=== PATIENT | female | born 1965 | race Caucasian/White ===

== ENCOUNTER 2020-08-21 04:28 | Emergency (ER) | payer MEDICAID ==
[~2020-08-21] VITALS: Ht 160 cm; Wt 50.0 kg
--- NOTE | 2020-08-21 05:30 | PHYS DOC ---
Past Medical History Past Medical History: Unknown (KIRSTIN PINEDA MD) Past Surgical History: Other Additional Past Surgical Histo: UNKNOWN (KIRSTIN PINEDA MD) Smoking Status: Current Every Day Smoker Alcohol Use: Heavy (KIRSTIN PINEDA MD) Adult General Chief Complaint Chief Complaint: ALCOHOL INTOXICATION HPI HPI Patient is a 55 year old with a past medical history of alcohol and substance abuse now presents emergency department due to concern for acute alcohol intoxication. Patient was apparently found by police at a local bus stop and appeared to be acutely intoxicated. Patient is denying any complaints. Does admit to consuming alcohol (KIRSTIN PINEDA MD) Review of Systems Review of Systems Constitutional: Denies fever or chills [] Eyes: Denies change in visual acuity, redness, or eye pain [] HENT: Denies nasal congestion or sore throat [] Respiratory: Denies cough or shortness of breath [] Cardiovascular: No additional information not addressed in HPI [] GI: Denies abdominal pain, nausea, vomiting, bloody stools or diarrhea [] : Denies dysuria or hematuria [] Musculoskeletal: Denies back pain or joint pain [] Integument: Denies rash or skin lesions [] Neurologic: Denies headache, focal weakness or sensory changes [] Endocrine: Denies polyuria or polydipsia [] All other systems were reviewed and found to be within normal limits, except as documented in this note. (KIRSTIN PINEDA MD) Allergies Allergies Allergies Coded Allergies Type Severity Reaction Last Updated Verified No Known Drug Allergies 10/05/19 No (ANAYA MONTOYA DO) Physical Exam Physical Exam Constitutional: Well developed, well nourished, no acute distress, non-toxic appearance. [] HENT: Normocephalic, atraumatic, bilateral external ears normal, oropharynx moist, no oral exudates, nose normal. [] Eyes: PERRLA, EOMI, conjunctiva normal, no discharge. [] Neck: Normal range of motion, no tenderness, supple, no stridor. [] Cardiovascular:Heart rate regular rhythm, no murmur [] Lungs & Thorax: Bilateral breath sounds clear to auscultation [] Abdomen: Bowel sounds normal, soft, no tenderness, no masses, no pulsatile masses. [] Skin: Warm, dry, no erythema, no rash. [] Back: No tenderness, no CVA tenderness. [] Extremities: No tenderness, no cyanosis, no clubbing, ROM intact, no edema. [] Neurologic: Alert and oriented X 3, slurred speech, normal motor function, normal sensory function, no focal deficits noted. [] Psychologic: Agitated, slurring speech, tearful. [] (KIRSTIN PINEDA MD) Current Patient Data Vital Signs Vital Signs Date Time Temp Pulse Resp B/P (MAP) Pulse Ox O2 Delivery O2 Flow Rate FiO2 08/21/20 08:00 79 18 144/77 (99) 97 Room Air 08/21/20 04:30 97.6 97.6 (ANAYA MONTOYA DO) Lab Values Laboratory Tests Test 08/21/20 00:02 Ethyl Alcohol Level 372 mg/dL (0-10) H (ANAYA MONTOYA DO) EKG EKG [] (KIRSTIN PINEDA MD) Radiology/Procedures Radiology/Procedures [] (KIRSTIN PINEDA MD) Course & Med Decision Making Course & Med Decision Making Pertinent Labs and Imaging studies reviewed. (See chart for details) 55-year-old female presenting to emergency department after alcohol use but appears clinically intoxicated. At this time no evidence for outward trauma. Will monitor for any changes. (KIRSTIN PINEDA MD) Course & Med Decision Making At 8 10 AM, patient is awake alert oriented, denies suicidal ideation, he was able to walk without a problem. We will discharge her home. (ANAYA MONTOYA DO) Dragon Disclaimer Dragon Disclaimer This electronic medical record was generated, in whole or in part, using a voice recognition dictation system. (KIRSTIN PINEDA MD) Departure Departure Impression: Primary Impression: Alcohol intoxication Disposition: 01 DC HOME SELF CARE/HOMELESS Condition: IMPROVED Referrals: NO PCP (PCP) Patient Instructions: Alcohol Intoxication Additional Instructions: [facility] [address] [place] [address] [facility] [address] [place] [address] [facility] [address] [place] [address] [facility] [address] [place] [address] [facility] [address] [place] [address] [facility] [address] [place] [address] [facility] [place] [address] [place] [address] [facility] [address] [place] [address] [facility] [address] [place] [address] [facility] [address] [place] [address] KIRSTIN PINEDA MD Aug 21, 2020 05:30 ANAYA MONTOYA DO Aug 21, 2020 08:10
[2020-08-21 08:00] VITALS: BP 144/77
== END 2020-08-21 08:45 | disposition home or self-care (01) ==
LOC: ER 04:28
DX: F10.229 Alcohol dependence with intoxication, unspecified (principal); F17.200 Nicotine dependence, unspecified, uncomplicated; Z98.890 Other specified postprocedural states
CPT/HCPCS: 36415; 99283; G0480

== ENCOUNTER 2020-11-19 22:32 | Inpatient (IN) | payer MEDICAID ==
[~2020-11-19] VITALS: Ht 160 cm; Wt 67.5 kg
--- NOTE | 2020-11-20 00:24 | EKG ---
[facility] [address] [place] [address] Test Date: 2020-11-19 Test Time: 22:56:04 Pat Name: JACKI AMES Department: Room: Gender: F Prescription Benefit Specialist: : 1965 Requested By: BLAISE COOPER Order Number: [id number] Reading MD: Measurements Intervals [place] Rate: 108 P: 33 NE: 130 QRS: 52 QRSD: 84 T: 62 QT: 342 QTc: 462 Interpretive Statements SINUS TACHYCARDIA OTHERWISE NORMAL ECG RI6.02 No previous ECG available for comparison
[2020-11-20 00:45] LABS: BILIRUBIN,URINE SMALL (NEG); CLARITY,URINE CLOUDY; COLOR,URINE AMBER; NITRITE,URINE NEGATIVE (NEG); PH,URINE 6.5 (<5.0-8.0); PROTEIN,URINE 100 mg/dL (NEG-TRACE)
[2020-11-20 00:56] LABS: BACTERIA,URINE 0 /HPF (0-FEW); HYALINE CASTS, URINE MODERATE /HPF; RBC,URINE OCC /HPF (0-2)
[2020-11-20 00:57] LABS: AMPHETAMINE/METHAMPHETAMINE POS (NEG); BARBITURATES NEG (NEG); BENZODIAZEPINES NEG (NEG); CANNABINOIDS NEG (NEG); COCAINE NEG (NEG); METHADONE NEG (NEG); OPIATES NEG (NEG); PHENCYCLIDINE NEG (NEG)
[2020-11-20] MEDS ORDERED: MULTIVIT INFUSN,ADULT 4,VIT K 10 ML, THIAMINE INJ 100 MG, FOLIC ACID INJ 1 MG in IV NOR... IV ONE (01:00)
--- NOTE | 2020-11-20 01:09 | RAD ---
CT HEAD AND C-SPINE WO dated 11/20/2020 12:30 AM. Comparison: None. Clinical Indication: Reason: intox/ams / Spl. Instructions: / History: , HEAD AND NECK PAIN Technical factors: Contiguous 5 mm axial images of the head were obtained from the skullbase to the v ertex. No contrast was administered. In addition, 3 mm axial images of the cervical spine were acquir ed with thin cut coronal and sagittal reconstructions. One or more of the following individualized dose reduction techniques were utilized for this examinat ion: 1. Automated exposure control 2. Adjustment of the mA and/or kV according to patient size 3. Use of iterative reconstruction technique Findings head: Ventricles and sulci are within normal limits for age. No evidence of ventricular shift or mass effec t. Mild patchy low density in the deep/subcortical periventricular white matter, nonspecific here is no evidence of hemorrhage or extra-axial collection. Visualized paranasal sinuses and mastoid air cells are clear. No acute osseous abnormality. IMPRESSION HEAD: 1. No evidence of acute intracranial hemorrhage or mass. Findings cervical spine: Images were acquired from the skull base to T3. There is straightening of the normal cervical lordosi s, otherwise sagittal alignment is anatomic. Vertebral body heights are maintained. No prevertebral s oft tissue swelling. Posterior elements are intact. No fractures are identified. Mild multilevel uncoverteral hypertrophy with facet arthropathy. There is some erosive changes of the C3-C4 facet joint on the right. Mild multilevel uncovertebral spurring. No focal disc herniation. Th e bony canal and foramen appear adequate. Visualized soft tissue structures are unremarkable. Limited images of lung apices are clear. IMPRESSION CERVICAL SPINE: 1. No evidence of fracture or malalignment. 2. Mild multilevel spondylosis. There are some erosive changes at the C3-C4 facet joint on the right which could be acute or chronic. Electronically signed by: Kendall Meza MD (11/20/2020 1:07 AM) MARYAM
--- NOTE | 2020-11-20 01:17 | RAD ---
Single view chest dated 11/20/2020 No comparison available. Clinical Indication: Altered mental status. Findings: Single upright portable exam of the chest was performed. Heart size and mediastinal contours are with in normal limits given technique. The lungs are clear without evidence of focal consolidation. Vascul ar interstitium is within normal limits. Impression:: Negative portable chest. Electronically signed by: Kendall Meza MD (11/20/2020 1:15 AM) MARYAM
[2020-11-20 02:27] LABS: BASO # 0.1 x10^3/uL (0.0-0.2); BASO % 1 % (0-3); EOS % 0 % (0-3); HEMATOCRIT 37.3 % (36.0-47.0); HEMOGLOBIN 13.4 g/dL (12.0-15.5); LYMPH # 1.3 x10^3/uL (1.0-4.8); LYMPH % 13 % (24-48); MEAN CORPUSCULAR HEMOGLOBIN 33 pg (25-35); MEAN CORPUSCULAR HGB CONC 36 g/dL (31-37); MEAN CORPUSCULAR VOLUME 91 fL (79-100); MONO # 0.8 x10^3/uL (0.0-1.1); MONO % 8 % (0-9); NEUT % 78 % (31-73); PLATELET COUNT 149 x10^3/uL (140-400); RED CELL DISTRIBUTION WIDTH 15.3 % (11.5-14.5); WHITE BLOOD COUNT 10.3 x10^3/uL (4.0-11.0)
[2020-11-20 02:36] LABS: MAGNESIUM 1.5 mg/dL (1.8-2.4); PROTHROMBIN TIME PATIENT 13.2 SEC (11.7-14.0)
[2020-11-20 02:37] LABS: CALCIUM 9.3 mg/dL (8.5-10.1); CREATININE 0.8 mg/dL (0.6-1.0); GFR 74.7; POTASSIUM 3.3 mmol/L (3.5-5.1)
[2020-11-20 02:52] LABS: ALBUMIN 4.4 g/dL (3.4-5.0); DIRECT BILIRUBIN 0.4 mg/dL (0.0-0.2); TOTAL BILIRUBIN 1.7 mg/dL (0.2-1.0); TOTAL PROTEIN 8.2 g/dL (6.4-8.2)
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
[2020-11-20] MEDS ORDERED: MAGNESIUM SULFATE 2GM 50 ML IV ONE (04:00)
[2020-11-20] MEDS ORDERED: IV NORMAL SALINE 1000ML BAG 1,000 ML IV ONE (04:00)
--- NOTE | 2020-11-20 11:38 | PDOC1 ---
History and Physical Date of Admission Date of Admission DATE: 11/20/20 TIME: 11:37 Identification/Chief Complaint Chief Complaint ALTERED MENTAL STATUS, ETOH ABUSE History of Present Illness History of Present Illness 55 yo F presents to the ed VIA ems after patient presented herself to the fire station reporting methamphetamine and alcohol intoxication, states she has a history of a GI bleed. Patient was very disorganized on ED arrival, was intoxicated with un steady gait. Patient does not have medical decision-making capacity on arrival, is homeless, last used meth 4 days ago, drinks a pint of vodka daily. mg low at 1.5 in ER She admits to a long history of alcohol abuse and has been in and out of rehabilitation in the past. Recently she was sober but resumed alcohol ingestion. She also takes methamphetamine intermittently last use 4 days ago . 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 jaundice,needs Alcohol abstinence and social work evaluation for rehabilitation Past Medical History Past Medical History Past Medical History Past Medical History: Unknown Past Surgical History: Other Additional Past Surgical Histo: UNKNOWN Smoking Status: Current Every Day Smoker Alcohol Use: Heavy 1 PINT VODKA A DAY METH ABUSE LAST USE 4 DAYS AGO FHX ETOH ABUSE Heme/Onc: No pertinent hx Hepatobiliary: Cirrhosis, Other Psych: Addictions Rheumatologic: No pertinent hx Infectious disease: No pertinent hx Past Surgical History Past Surgical History: No pertinent history Family History Family History: Hypertension, Family History Unknown Social History Smoke: <1 pack per day ALCOHOL: heavy Drugs: Crystal meth Current Problem List Problem List Problems Medical Problems: (1) Hypomagnesemia Status: Acute (2) Methamphetamine abuse Status: Acute (3) Rhabdomyolysis Status: Acute Current Medications Current Medications Current Medications Multivitamins 10 ml/Thiamine HCl 100 mg/Folic Acid 1 mg/Sodium Chloride 1,011.2 ml @ 1,000.088 mls/hr 1X ONCE IV Last administered on 11/20/20at 01:00; Start 11/20/20 at 01:00; Stop 11/20/20 at 02:00; Status DC Sodium Chloride 1,000 ml @ 1,000 mls/hr 1X ONCE IV Last administered on 11/20/20at 06:43; Start 11/20/20 at 04:00; Stop 11/20/20 at 04:59; Status DC Magnesium Sulfate 50 ml @ 25 mls/hr 1X ONCE IV Last administered on 11/20/20at 07:15; Start 11/20/20 at 04:00; Stop 11/20/20 at 05:59; Status DC Allergies Allergies: Coded Allergies: No Known Drug Allergies (Unverified , 10/05/19) ROS General: YES: Fatigue; No: Chills, Night Sweats, Malaise, Appetite, Other PSYCHOLOGICAL ROS: YES: Anxiety, Depression, Disorientation, Irritablity, Memory difficulties, Mood Swings; No: Behavioral Disorder, Concentration difficultie, Decreased libido, Hallucinations, Hostility, Obsessive thoughts, Physical abuse, Sexual abuse, S leep disturbances, Suicidal ideation, Other Eyes: No Blurry vision, No Decreased vision, No Double vision, No Dry eyes, No Excessive tearing, No Eye Pain, No Itchy Eyes, No Loss of vision, No Photophobia, No Scotomata, No Uses contacts, No Uses glasses, No Other HEENT: YES: Heacaches; No: Visual Changes, Hearing change, Nasal congestion, Nasal discharge, Oral lesions, Sinus pain, Sore Throat, Epistaxis, Sneezing, Snoring, Tinnitus, Vertigo, Vocal changes, Other Hematological and Lymphatic: YES: Bleeding Problems; No: Blood Clots, Blood Transfusions, Brusing, Night Sweats, Pallor, Swollen Lymph Nodes, Other ENDOCRINE: No: Breast Changes, Galactorrhea, Hair Pattern Changes, Hot Flashes, Malaise/lethargy, Mood Swings, Palpitations, Polydipsia/polyuria, Skin Changes, Temperature Intolerance, Unexpected Weight Changes, Other Breast: No New/Changing Breast Lumps, No Nipple changes, No Nipple discharge, No Other Respiratory: No: Cough, Hemoptysis, Orthopnea, Pleuritic Pain, Shortness of breath, SOB with excertion, Sputum Changes, Stridor, Tachypnea, Wheezing, Other Cardiovascular: No Chest Pain, No Palpitations, No Orthopnea, No Paroxysmal Noc. Dyspnea, No Edema, No Lt Headedness, No Other Gastrointestinal: Yes Nausea; No Vomiting, No Abdominal Pain, No Diarrhea, No Constipation, No Melena, No Hematochezia, No Other Genitourinary: No Dysuria, No Frequency, No Incontinence, No Hematuria, No Retention, No Discharge, No Urgency, No Pain, No Flank Pain, No Other, No , No , No , No , No , No , No Musculoskeletal: Yes Gait Disturbance, Yes Joint Stiffness, Yes Muscular Weakness Neurological: Yes Behavorial Changes, Yes Confusion, Yes Dizziness, Yes Gait Disturbance, Yes Impaired Coord/balance, Yes Memory Loss; No Bowel/Bladder ControlChng, No Headaches, No Numbness/Tingling, No Seizures, No Speech Problems, No Tremors, No Visual Changes, No Weakness, No Other Skin: Yes Dry Skin; No Eczema, No Hair Changes, No Lumps, No Mole Changes, No Mottling, No Nail Changes, No Pruritus, No Rash, No Skin Lesion Changes, No Other, No Acne Physical Exam Physical Exam poor hygiene, moving constantly on gurney in ER General: Alert, Cooperative, mild distress HEENT: EOMI, Mucous membr. moist/pink Lungs: Clear to auscultation, Normal air movement Heart: RRR, no thrills, no rubs, no gallops, no murmurs Breasts: Not examined Abdomen: Normal bowel sounds, Soft Rectal Exam: not examined PELVIC: Examination not indicated Extremities: No cyanosis, No edema Skin: No rashes, No significant lesion Neuro: Cranial nerves 3-12 NL Vitals Vitals Vital Signs Date Time Temp Pulse Resp B/P (MAP) Pulse Ox O2 Delivery O2 Flow Rate FiO2 11/20/20 07:47 88 134/71 (92) 95 Room Air 11/19/20 22:40 98.9 24 98.9 Labs Labs Laboratory Tests Test 11/20/20 00:06 11/20/20 01:30 Urine Collection Type Unknown Urine Color Razia Urine Clarity Cloudy Urine pH 6.5 (<5.0-8.0) Urine Specific Thayer 1.025 (1.000-1.030) Urine Protein 100 mg/dL (NEG-TRACE) Urine Glucose (UA) Negative mg/dL (NEG) Urine Ketones (Stick) Trace mg/dL (NEG) Urine Blood Negative (NEG) Urine Nitrite Negative (NEG) Urine Bilirubin Small (NEG) Urine Urobilinogen Dipstick 1.0 mg/dL (0.2 mg/dL) Urine Leukocyte Esterase Small (NEG) Urine RBC Occ /HPF (0-2) Urine WBC 1-4 /HPF (0-4) Urine Squamous Epithelial Cells Few /LPF Urine Bacteria 0 /HPF (0-FEW) Urine Hyaline Casts Moderate /HPF Urine Mucus Mod /LPF Urine Opiates Screen Neg (NEG) Urine Methadone Screen Neg (NEG) Urine Barbiturates Neg (NEG) Urine Phencyclidine Screen Neg (NEG) Urine Amphetamine/Methamphetamine Pos (NEG) Urine Benzodiazepines Screen Neg (NEG) Urine Cocaine Screen Neg (NEG) Urine Cannabinoids Screen Neg (NEG) Urine Ethyl Alcohol Pos (NEG) White Blood Count 10.3 x10^3/uL (4.0-11.0) Red Blood Count 4.10 x10^6/uL (3.50-5.40) Hemoglobin 13.4 g/dL (12.0-15.5) Hematocrit 37.3 % (36.0-47.0) Mean Corpuscular Volume 91 fL (79-100) Mean Corpuscular Hemoglobin 33 pg (25-35) Mean Corpuscular Hemoglobin Concent 36 g/dL (31-37) Red Cell Distribution Width 15.3 % (11.5-14.5) Platelet Count 149 x10^3/uL (140-400) Neutrophils (%) (Auto) 78 % (31-73) Lymphocytes (%) (Auto) 13 % (24-48) Monocytes (%) (Auto) 8 % (0-9) Eosinophils (%) (Auto) 0 % (0-3) Basophils (%) (Auto) 1 % (0-3) Neutrophils # (Auto) 8.0 x10^3/uL (1.8-7.7) Lymphocytes # (Auto) 1.3 x10^3/uL (1.0-4.8) Monocytes # (Auto) 0.8 x10^3/uL (0.0-1.1) Eosinophils # (Auto) 0.0 x10^3/uL (0.0-0.7) Basophils # (Auto) 0.1 x10^3/uL (0.0-0.2) Prothrombin Time 13.2 SEC (11.7-14.0) Prothromb Time International Ratio 1.0 (0.8-1.1) Activated Partial Thromboplast Time 27 SEC (24-38) Sodium Level 137 mmol/L (136-145) Potassium Level 3.3 mmol/L (3.5-5.1) Chloride Level 95 mmol/L (98-107) Carbon Dioxide Level 25 mmol/L (21-32) Anion Gap 17 (6-14) Blood Urea Nitrogen 20 mg/dL (7-20) Creatinine 0.8 mg/dL (0.6-1.0) Estimated GFR (Cockcroft-Gault) 74.7 Glucose Level 141 mg/dL (70-99) Calcium Level 9.3 mg/dL (8.5-10.1) Magnesium Level 1.5 mg/dL (1.8-2.4) Total Bilirubin 1.7 mg/dL (0.2-1.0) Direct Bilirubin 0.4 mg/dL (0.0-0.2) Aspartate Amino Transf (AST/SGOT) 95 U/L (15-37) Alanine Aminotransferase (ALT/SGPT) 49 U/L (14-59) Alkaline Phosphatase 105 U/L (46-116) Creatine Kinase 2474 U/L (26-192) Troponin I Quantitative < 0.017 ng/mL (0.000-0.055) Total Protein 8.2 g/dL (6.4-8.2) Albumin 4.4 g/dL (3.4-5.0) Lipase 86 U/L (73-393) Ethyl Alcohol Level 17 mg/dL (0-10) Laboratory Tests Test 11/20/20 00:06 11/20/20 01:30 Urine Collection Type Unknown Urine Color Razia Urine Clarity Cloudy Urine pH 6.5 (<5.0-8.0) Urine Specific Thayer 1.025 (1.000-1.030) Urine Protein 100 mg/dL (NEG-TRACE) Urine Glucose (UA) Negative mg/dL (NEG) Urine Ketones (Stick) Trace mg/dL (NEG) Urine Blood Negative (NEG) Urine Nitrite Negative (NEG) Urine Bilirubin Small (NEG) Urine Urobilinogen Dipstick 1.0 mg/dL (0.2 mg/dL) Urine Leukocyte Esterase Small (NEG) Urine RBC Occ /HPF (0-2) Urine WBC 1-4 /HPF (0-4) Urine Squamous Epithelial Cells Few /LPF Urine Bacteria 0 /HPF (0-FEW) Urine Hyaline Casts Moderate /HPF Urine Mucus Mod /LPF Urine Opiates Screen Neg (NEG) Urine Methadone Screen Neg (NEG) Urine Barbiturates Neg (NEG) Urine Phencyclidine Screen Neg (NEG) Urine Amphetamine/Methamphetamine Pos (NEG) Urine Benzodiazepines Screen Neg (NEG) Urine Cocaine Screen Neg (NEG) Urine Cannabinoids Screen Neg (NEG) Urine Ethyl Alcohol Pos (NEG) White Blood Count 10.3 x10^3/uL (4.0-11.0) Red Blood Count 4.10 x10^6/uL (3.50-5.40) Hemoglobin 13.4 g/dL (12.0-15.5) Hematocrit 37.3 % (36.0-47.0) Mean Corpuscular Volume 91 fL (79-100) Mean Corpuscular Hemoglobin 33 pg (25-35) Mean Corpuscular Hemoglobin Concent 36 g/dL (31-37) Red Cell Distribution Width 15.3 % (11.5-14.5) Platelet Count 149 x10^3/uL (140-400) Neutrophils (%) (Auto) 78 % (31-73) Lymphocytes (%) (Auto) 13 % (24-48) Monocytes (%) (Auto) 8 % (0-9) Eosinophils (%) (Auto) 0 % (0-3) Basophils (%) (Auto) 1 % (0-3) Neutrophils # (Auto) 8.0 x10^3/uL (1.8-7.7) Lymphocytes # (Auto) 1.3 x10^3/uL (1.0-4.8) Monocytes # (Auto) 0.8 x10^3/uL (0.0-1.1) Eosinophils # (Auto) 0.0 x10^3/uL (0.0-0.7) Basophils # (Auto) 0.1 x10^3/uL (0.0-0.2) Prothrombin Time 13.2 SEC (11.7-14.0) Prothromb Time International Ratio 1.0 (0.8-1.1) Activated Partial Thromboplast Time 27 SEC (24-38) Sodium Level 137 mmol/L (136-145) Potassium Level 3.3 mmol/L (3.5-5.1) Chloride Level 95 mmol/L (98-107) Carbon Dioxide Level 25 mmol/L (21-32) Anion Gap 17 (6-14) Blood Urea Nitrogen 20 mg/dL (7-20) Creatinine 0.8 mg/dL (0.6-1.0) Estimated GFR (Cockcroft-Gault) 74.7 Glucose Level 141 mg/dL (70-99) Calcium Level 9.3 mg/dL (8.5-10.1) Magnesium Level 1.5 mg/dL (1.8-2.4) Total Bilirubin 1.7 mg/dL (0.2-1.0) Direct Bilirubin 0.4 mg/dL (0.0-0.2) Aspartate Amino Transf (AST/SGOT) 95 U/L (15-37) Alanine Aminotransferase (ALT/SGPT) 49 U/L (14-59) Alkaline Phosphatase 105 U/L (46-116) Creatine Kinase 2474 U/L (26-192) Troponin I Quantitative < 0.017 ng/mL (0.000-0.055) Total Protein 8.2 g/dL (6.4-8.2) Albumin 4.4 g/dL (3.4-5.0) Lipase 86 U/L (73-393) Ethyl Alcohol Level 17 mg/dL (0-10) Images Images EXAM: CT Abdomen and Pelvis without IV contrast INDICATION: Elevated lipase. Patient is stuporous from alcohol consumption. TECHNIQUE: Multi-detector row CT images were acquired from the lung bases through the abdomen and pelvis without the use of IV contrast. Sagittal and coronal images were acquired from the transaxial data. All CT scans performed at this facility utilize dose optimization techniques as appropriate to the exam, including the following: Automated exposure control and adjustment of the mA and/or KV according to patient size (this includes techniques or standardized protocols for targeted exams where dose is indication/reason for exam). ORAL CONTRAST: None COMPARISON: None FINDINGS: The absence of IV contrast limits evaluation of soft tissue pathology. LOWER CHEST: Mild bibasilar atelectasis. LIVER: Unremarkable BILIARY SYSTEM: Gallbladder is unremarkable. Bile ducts are not dilated. PANCREAS: Unremarkable. No evidence of peripancreatic fluid collection SPLEEN: Unremarkable ADRENALS: Unremarkable KIDNEYS & URETERS: Unremarkable BLADDER: Partially decompressed by an indwelling Little catheter. REPRODUCTIVE ORGANS: Myomatous uterus. GASTROINTESTINAL: The stomach, small bowel, and colon are unremarkable. The appendix is normal. MESENTERY/PERITONEUM/RETROPERITONEUM: Unremarkable VASCULAR: Unremarkable LYMPH NODES: No adenopathy OSSEOUS & SOFT TISSUES: Unremarkable IMPRESSION: No acute findings on noncontrast abdomen and pelvis CT. This does not preclude acute pancreatitis but shows no CT evidence of significant pancreatic parenchymal damage or development of fluid collections . If clinically warranted, follow-up examination could be obtained with IV contrast administration. Electronically signed by: Mor Angelo MD (10/03/2019 9:42 PM) [id number] DICTATED and SIGNED BY: MOR ANGELO MD DATE: 10/03/192141 Single view chest dated 11/20/2020 No comparison available. Clinical Indication: Altered mental status. Findings: Single upright portable exam of the chest was performed. Heart size and mediastinal contours are within normal limits given technique. The lungs are clear without evidence of focal consolidation. Vascular interstitium is within normal limits. Impression:: Negative portable chest. Electronically signed by: Kendall Meza MD (11/20/2020 1:15 AM) [facility] DICTATED and SIGNED BY: KENDALL MEZA MD DATE: 11/20/20 [id number] EX: F EXAM STATUS: PRE ER ORD. PHYSICIAN: BLAISE COOPER DO REASON: intox/ams PROCEDURE: CT HEAD AND CERVICAL SPINE WO CT HEAD AND C-SPINE WO dated 11/20/2020 12:30 AM. Comparison: None. Clinical Indication: Reason: intox/ams / Spl. Instructions: / History: , HEAD AND NECK PAIN Technical factors: Contiguous 5 mm axial images of the head were obtained from the skullbase to the vertex. No contrast was administered. In addition, 3 mm axial images of the cervical spine were acquired with thin cut coronal and sagittal reconstructions. One or more of the following individualized dose reduction techniques were utilized for this examination: 1. Automated exposure control 2. Adjustment of the mA and/or kV according to patient size 3. Use of iterative reconstruction technique Findings head: Ventricles and sulci are within normal limits for age. No evidence of ventricular shift or mass effect. Mild patchy low density in the deep/subcortical periventricular white matter, nonspecific here is no evidence of hemorrhage or extra-axial collection. Visualized paranasal sinuses and mastoid air cells are clear. No acute osseous abnormality. IMPRESSION HEAD: 1. No evidence of acute intracranial hemorrhage or mass. Findings cervical spine: Images were acquired from the skull base to T3. There is straightening of the normal cervical lordosis, otherwise sagittal alignment is anatomic. Vertebral body heights are maintained. No prevertebral soft tissue swelling. Posterior elements are intact. No fractures are identified. Mild multilevel uncoverteral hypertrophy with facet arthropathy. There is some erosive changes of the C3-C4 facet joint on the right. Mild multilevel un covertebral spurring. No focal disc herniation. The bony canal and foramen appear adequate. Visualized soft tissue structures are unremarkable. Limited images of lung apices are clear. IMPRESSION CERVICAL SPINE: 1. No evidence of fracture or malalignment. 2. Mild multilevel spondylosis. There are some erosive changes at the C3-C4 facet joint on the right which could be acute or chronic. Electronically signed by: Kendall Meza MD (11/20/2020 1:07 AM) [facility] [place] DICTATED and SIGNED BY: KENDALL MEZA MD VTE Prophylaxis Ordered VTE Prophylaxis Devices: No VTE Pharmacological Prophylaxi: Yes Assessment/Plan Assessment/Plan IMPRESSION Acute altered mental status DUE TO POLYSUBSTANCE ABUSE Acute encephalopathy - metabolic with intoxication, withdrawal Hypokalemia - will replace, iv Transaminitis - ETOH fatty liver rhabdomyolysis cpk 2474 AT risk of renal injury HYPOKALEMIA - hypovolemic, D5 with 20meq KCL, 100cc/hr polysubstance abuse , METH, ETOH, SEVERE Acute alcohol intoxication - Chronic history of alcohol abuse - Amphetamine abuse - counseled. TOBACCO ABUSE DISORDER erosive changes at the C3-C4 facet joint on the right which could be acute or chronic on CT No focal disc herniation HOMELESS PLAN ADMIT CIWA protocol dvt prophylaxis follow CPK nephrology consult iv fluid hydration TREND RENAL FX DVT PROPHYLAXIS pat consult banana bag iv pepsis gi prophylaxis trend lytes NH4 LEVEL SS to assist Alcohol abstinence and social work evaluation for rehabilitation PAT consult 75 min pt exam, chart review, > 50% of time spent with exam, chart review, pt care coordination Justifications for Admission Other Justification NABEEL MAYA MD Nov 20, 2020 11:37
[2020-11-20] MEDS ORDERED: cloNIDine HCL 0.1 MG TABLET PO PRN ×2 (11:45→12:00)
[2020-11-20] MEDS ORDERED: diphenhydrAMINE 50 MG/ML VIAL IVP PRN (11:45)
[2020-11-20] MEDS ORDERED: HALOPERIDOL LACTATE 5 MG/ML VIAL. IVP PRN (11:45)
[2020-11-20] MEDS ORDERED: ACETAMINOPHEN 325 MG TABLET. PO PRN (12:00)
[2020-11-20] MEDS: ENOXAPARIN 40 MG/0.4 ML SYRINGE. SQ SCH (12:00)
[2020-11-20] MEDS ORDERED: DOCUSATE SODIUM 100 MG CAPSULE. PO PRN (12:00)
[2020-11-20] MEDS ORDERED: guaiFENesin ORAL 200 MG/10 ML LIQUID. PO PRN (12:00)
[2020-11-20] MEDS ORDERED: LORazepam 0.5 MG TABLET PO PRN (12:00)
[2020-11-20] MEDS ORDERED: SODIUM PHOSPHATES 19/7GM 133 ML ENEMA. PR PRN (12:00)
[2020-11-20] MEDS ORDERED: IPRATRPIUM/ALBUTEROL 0.5/2.5MG 3 ML NEBU. NEB SCH (12:00)
[2020-11-20] MEDS ORDERED: 0.9 % SODIUM CHLORIDE 10 ML DISP.SYRIN. IV PRN (12:00)
[2020-11-20] MEDS ORDERED: ONDANSETRON PF 4 MG/2 ML VIAL. IV PRN (12:00)
[2020-11-20] MEDS ORDERED: MAG HYDROX/ALUMINUM HYD/SIMETH 30 ML ORAL.SUSP PO PRN (12:00)
[2020-11-20] MEDS: POTASSIUM CL 20MEQ D5-0.9%NACL 1,000 ML IV SCH (13:08)
[2020-11-20] MEDS ORDERED: POTASSIUM CHLORIDE 20 MEQ TABLET.ER. PO ONE (13:30)
[2020-11-20] MEDS ORDERED: DEXTROSE 50% 25 GM / 50ML DISP.SYRIN. IV PRN (13:30)
[2020-11-20] MEDS: MULTIVIT INFUSN,ADULT 4,VIT K 10 ML, THIAMINE INJ 100 MG, FOLIC ACID INJ 1 MG in IV NOR... IV SCH (14:20)
[2020-11-20 15:00] VITALS: BP 132/73
[2020-11-20] MEDS ORDERED: IPRATRPIUM/ALBUTEROL 0.5/2.5MG 3 ML NEBU. NEB PRN (15:45)
[2020-11-20] MEDS ORDERED: NICOTINE 21MG PATCH. TD ONE (15:45)
[2020-11-20] MEDS: INSULIN LISPRO 300 UNITS/3 ML VIAL. SQ SCH (17:00)
[2020-11-20 19:00] VITALS: BP 144/86
[2020-11-20] MEDS: FAMOTIDINE 20 MG/2 ML VIAL IVP SCH (20:37)
[2020-11-20 23:01] VITALS: BP 112/62
[2020-11-21 03:20] VITALS: BP 105/57
[2020-11-21 05:07] LABS: BASO % 0 % (0-3); EOS # 0.1 x10^3/uL (0.0-0.7); EOS % 2 % (0-3); HEMATOCRIT 29.9 % (36.0-47.0); LYMPH # 1.5 x10^3/uL (1.0-4.8); LYMPH % 32 % (24-48); MEAN CORPUSCULAR HEMOGLOBIN 32 pg (25-35); MEAN CORPUSCULAR HGB CONC 34 g/dL (31-37); MEAN CORPUSCULAR VOLUME 94 fL (79-100); MONO # 0.5 x10^3/uL (0.0-1.1); MONO % 10 % (0-9); NEUT # 2.7 x10^3/uL (1.8-7.7); NEUT % 56 % (31-73); PLATELET COUNT 105 x10^3/uL (140-400); RED BLOOD COUNT 3.18 x10^6/uL (3.50-5.40); RED CELL DISTRIBUTION WIDTH 15.9 % (11.5-14.5); WHITE BLOOD COUNT 4.9 x10^3/uL (4.0-11.0)
[2020-11-21 05:41] LABS: ALBUMIN 2.9 g/dL (3.4-5.0); CALCIUM 8.4 mg/dL (8.5-10.1); CREATININE 0.6 mg/dL (0.6-1.0); GFR 104.2; TOTAL BILIRUBIN 0.7 mg/dL (0.2-1.0); TOTAL PROTEIN 5.9 g/dL (6.4-8.2)
[2020-11-21 05:52] LABS: POTASSIUM 3.3 mmol/L (3.5-5.1)
[2020-11-21] MEDS: POTASSIUM CL 20MEQ D5-0.9%NACL 1,000 ML IV SCH ×3 (06:34→19:01)
[2020-11-21 07:00] VITALS: BP 118/84
[2020-11-21] MEDS: INSULIN LISPRO 300 UNITS/3 ML VIAL. SQ SCH ×3 (08:00→16:33)
[2020-11-21] MEDS: FAMOTIDINE 20 MG/2 ML VIAL IVP SCH ×2 (08:03→20:11)
[2020-11-21] MEDS: NICOTINE 21MG PATCH. TD SCH (08:03)
[2020-11-21] MEDS: MULTIVIT INFUSN,ADULT 4,VIT K 10 ML, THIAMINE INJ 100 MG, FOLIC ACID INJ 1 MG in IV NOR... IV SCH (09:17)
--- NOTE | 2020-11-21 10:43 | NUR ---
SW following. Discussed with RN, pt from home, room air, cardiac diet. PT/OT ordered. Zheng RODRIGUEZ) meeting with pt today. JAMARI will continue to follow. Addendum: 11/21/20 at 1523 by MARCELINO KAUFFMAN Zheng RODRIGUEZ) met with pt, pt is open with [facility] meds filled on 11/18 but has not taken them yet. Per mina Calzada denying any needs at this time.
[2020-11-21 11:08] VITALS: BP 134/78
--- NOTE | 2020-11-21 11:48 | PDOC ---
[employer] PROGRESS NOTE Date of Service DOS: DATE: 11/21/20 TIME: 11:45 Chief Complaint Chief Complaint Acute altered mental status DUE TO POLYSUBSTANCE ABUSE Acute encephalopathy - metabolic with intoxication, withdrawal Hypokalemia - will replace, iv Transaminitis - ETOH fatty liver rhabdomyolysis cpk 2474 AT risk of renal injury HYPOKALEMIA - hypovolemic, D5 with 20meq KCL, 100cc/hr polysubstance abuse , METH, ETOH, SEVERE Acute alcohol intoxication - Chronic history of alcohol abuse - Amphetamine abuse - counseled. TOBACCO ABUSE DISORDER erosive changes at the C3-C4 facet joint on the right which could be acute or chronic on CT No focal disc herniation HOMELESS Plan: ADMIT CIKS protocol dvt prophylaxis follow CPK nephrology consult iv fluid hydration TREND RENAL FX DVT PROPHYLAXIS pat consult banana bag iv pepsis gi prophylaxis trend lytes NH4 LEVEL SS to assist Alcohol abstinence and social work evaluation for rehabilitation PAT consult History of Present Illness History of Present Illness 55 yo F presents to the ed VIA ems after patient presented herself to the fire station reporting methamphetamine and alcohol intoxication, states she has a history of a GI bleed. Patient was very disorganized on ED arrival, was intoxicated with un steady gait. Patient does not have medical decision-making capacity on arrival, is homeless, last used meth 4 days ago, drinks a pint of vodka daily. mg low at 1.5 in ER She admits to a long history of alcohol abuse and has been in and out of rehabilitation in the past. Recently she was sober but resumed alcohol ingestion. She also takes methamphetamine intermittently last use 4 days ago . 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 jaundice,needs Alcohol abstinence and social work evaluation for rehabilitation. 11/21/2020 Patient seen examined at bedside. Afebrile, no acute insert night. Patient is requesting to speak with a dialysis social worker. Will repeat CK this afternoon. Continue with IV fluids. I believe patient is homeless; plan to discharge when rhabdomyolysis has resolved. Vitals/I&O Vitals/I&O: Vital Signs Date Time Temp Pulse Resp B/P (MAP) Pulse Ox O2 Delivery O2 Flow Rate FiO2 11/21/20 11:08 97.7 97 18 134/78 (96) 96 Room Air 97.7 I & O 11/20/20 11/20/20 11/21/20 15:00 23:00 07:00 Intake Total 48036.2 ml 450 ml Balance 42805.2 ml 450 ml Physical Exam General: Alert, Cooperative, No acute distress Abdomen: Normal bowel sounds, Soft Extremities: No cyanosis, No edema Skin: No rashes, No significant lesion Labs Labs: Laboratory Tests Test 11/20/20 13:40 11/20/20 16:26 11/20/20 20:15 11/21/20 03:05 Ammonia 43 mcmol/L (11-34) Glucose (Fingerstick) 183 mg/dL (70-99) 200 mg/dL (70-99) White Blood Count 4.9 x10^3/uL (4.0-11.0) Red Blood Count 3.18 x10^6/uL (3.50-5.40) Hemoglobin 10.0 g/dL (12.0-15.5) Hematocrit 29.9 % (36.0-47.0) Mean Corpuscular Volume 94 fL (79-100) Mean Corpuscular Hemoglobin 32 pg (25-35) Mean Corpuscular Hemoglobin Concent 34 g/dL (31-37) Red Cell Distribution Width 15.9 % (11.5-14.5) Platelet Count 105 x10^3/uL (140-400) Neutrophils (%) (Auto) 56 % (31-73) Lymphocytes (%) (Auto) 32 % (24-48) Monocytes (%) (Auto) 10 % (0-9) Eosinophils (%) (Auto) 2 % (0-3) Basophils (%) (Auto) 0 % (0-3) Neutrophils # (Auto) 2.7 x10^3/uL (1.8-7.7) Lymphocytes # (Auto) 1.5 x10^3/uL (1.0-4.8) Monocytes # (Auto) 0.5 x10^3/uL (0.0-1.1) Eosinophils # (Auto) 0.1 x10^3/uL (0.0-0.7) Basophils # (Auto) 0.0 x10^3/uL (0.0-0.2) Sodium Level 140 mmol/L (136-145) Potassium Level 3.3 mmol/L (3.5-5.1) Chloride Level 107 mmol/L (98-107) Carbon Dioxide Level 24 mmol/L (21-32) Anion Gap 9 (6-14) Blood Urea Nitrogen 11 mg/dL (7-20) Creatinine 0.6 mg/dL (0.6-1.0) Estimated GFR (Cockcroft-Gault) 104.2 BUN/Creatinine Ratio 18 (6-20) Glucose Level 109 mg/dL (70-99) Calcium Level 8.4 mg/dL (8.5-10.1) Total Bilirubin 0.7 mg/dL (0.2-1.0) Aspartate Amino Transf (AST/SGOT) 57 U/L (15-37) Alanine Aminotransferase (ALT/SGPT) 35 U/L (14-59) Alkaline Phosphatase 100 U/L (46-116) Creatine Kinase 931 U/L (26-192) Total Protein 5.9 g/dL (6.4-8.2) Albumin 2.9 g/dL (3.4-5.0) Albumin/Globulin Ratio 1.0 (1.0-1.7) Test 11/21/20 07:36 11/21/20 11:32 Glucose (Fingerstick) 119 mg/dL (70-99) 127 mg/dL (70-99) Assessment and Plan Assessmemt and Plan Problems Medical Problems: (1) Hypomagnesemia Status: Acute (2) Methamphetamine abuse Status: Acute (3) Rhabdomyolysis Status: Acute Comment Review of Relevant I have reviewed the following items alexandre (where applicable) has been applied. Medications: Current Medications Medications (Trade) Dose Ordered Sig/Holly Route PRN Reason Start Time Stop Time Status Last Admin Dose Admin Multivitamins 10 ml/Thiamine HCl 100 mg/Folic Acid 1 mg/Sodium Chloride 1,011.2 ml @ 100 mls/ hr DAILY IV 11/20/20 13:00 11/24/20 19:07 11/21/20 09:17 Ondansetron HCl (Zofran) 4 mg PRN Q4HRS PRN IV NAUSEA/VOMITING 11/20/20 12:00 11/20/20 15:58 Famotidine (Pepcid Vial) 20 mg BID IVP 11/20/20 21:00 11/21/20 08:03 Potassium Chloride (Klor-Con) 40 meq 1X ONCE PO 11/20/20 13:30 11/20/20 13:31 DC 11/20/20 14:55 Nicotine (Nicoderm Cq 21mg) 1 patch 1X ONCE TD 11/20/20 15:45 11/20/20 15:54 DC 11/20/20 15:59 Nicotine (Nicoderm Cq 21mg) 1 patch DAILY TD 11/21/20 09:00 11/21/20 08:03 Justifications for Admission Other Justification KAT CORRALES MD Nov 21, 2020 11:48
[2020-11-21] MEDS: ENOXAPARIN 40 MG/0.4 ML SYRINGE. SQ SCH (12:00)
[2020-11-21] MEDS: IV NORMAL SALINE 1000ML BAG 1,000 ML IV SCH ×2 (12:30→20:14)
--- NOTE | 2020-11-21 12:59 | PDOC2 ---
CONSULT Date of Consult Date of Consult DATE: 11/21/20 TIME: 12:52 Reason for Consult Reason for Consult: RHABDOMYLYSIS Referring Physician Referring Physician: ZULMA Identification/Chief Complaint Chief Complaint USED METH AND ETOH Source Source: Chart review History of Present Illness Reason for Visit: THIS IS A 55 YR OLD WHO PRESENTED HERSELF DUE TO USE OF METH AND ETOH INTOXICATION. CONFUSED WITH UNSTEADY GAIT. IMAGING NEG. HAS ETOH RELATED LIVER DISEASED. NON COMPLIANT AND HAS NOT SEEN ANYONE FOR HEALTHCARE REGULARLY. HAS BEEN HOMELESS PER REPORT. RENAL CONSULT DUE TO A CPK LEVEL OF 2474 AND K OF 3.3. CR WNL. BUN/CR RATIO OF 25. UA TRACE FOR RBC Past Medical History Heme/Onc: No pertinent hx Hepatobiliary: Cirrhosis, Other Psych: Addictions Rheumatologic: No pertinent hx Infectious disease: No pertinent hx Renal/: No pertinent hx Endocrine: Diabetes Past Surgical History Past Surgical History: No pertinent history Family History Family History: Hypertension, Family History Unknown Social History <1 pack per day ALCOHOL: heavy Drugs: Crystal meth Lives: Homeless Current Problem List Problem List Problems Medical Problems: (1) Hypomagnesemia Status: Acute (2) Methamphetamine abuse Status: Acute (3) Rhabdomyolysis Status: Acute Current Medications Current Medications Current Medications Multivitamins 10 ml/Thiamine HCl 100 mg/Folic Acid 1 mg/Sodium Chloride 1,011.2 ml @ 1,000.088 mls/hr 1X ONCE IV Last administered on 11/20/20at 01:00; Start 11/20/20 at 01:00; Stop 11/20/20 at 02:00; Status DC Sodium Chloride 1,000 ml @ 1,000 mls/hr 1X ONCE IV Last administered on 11/20/20at 06:43; Start 11/20/20 at 04:00; Stop 11/20/20 at 04:59; Status DC Magnesium Sulfate 50 ml @ 25 mls/hr 1X ONCE IV Last administered on 11/20/20at 07:15; Start 11/20/20 at 04:00; Stop 11/20/20 at 05:59; Status DC Potassium Chloride/Dextrose/ Sod Cl 1,000 ml @ 100 mls/hr Q10H IV Last admin istered on 11/21/20at 06:34; Start 11/20/20 at 11:45 Multivitamins 10 ml/Thiamine HCl 100 mg/Folic Acid 1 mg/Sodium Chloride 1,011.2 ml @ 100 mls/ hr DAILY IV Last administered on 11/21/20at 09:17; Start 11/20/20 at 13:00; Stop 11/24/20 at 19:07 Lorazepam (Ativan) 4 mg PRN Q1HR PRN PO For CIWA 8-14; Start 11/20/20 at 11:45 Lorazepam (Ativan Inj) 2 mg PRN Q1HR PRN IV For CIWA 8-14 Last administered on 11/21/20at 11:06; Start 11/20/20 at 11:45 Haloperidol Lactate (Haldol Inj) 5 mg PRN Q4HRS PRN IVP Hallucin atns,Confusn,Delirium; Start 11/20/20 at 11:45 Diphenhydramine HCl (Benadryl) 25 mg PRN Q15MIN PRN IVP EPS symptoms 2'Haldol admin; Start 11/20/20 at 11:45 Clonidine HCl (Catapres) 0.1 mg PRN Q1HR PRN PO SBP > 180 or DBP > 100, MRX3; Start 11/20/20 at 11:45 Lorazepam (Ativan Inj) 2 mg PRN Q15MIN PRN IV SEE COMMENTS; Start 11/20/20 at 11:45 Lorazepam (Ativan Inj) 4 mg PRN Q15MIN PRN IV SEE COMMENTS; Start 11/20/20 at 11:45 Sodium Chloride (Normal Saline Flush) 3 ml QSHIFT PRN IV AFTER MEDS AND BLOOD DRAWS; Start 11/20/20 at 12:00 Ondansetron HCl (Zofran) 4 mg PRN Q4HRS PRN IV NAUSEA/VOMITING Last administered on 11/20/20at 15:58; Start 11/20/20 at 12:00 Acetaminophen (Tylenol) 650 mg PRN Q4HRS PRN PO TEMP OVER 100.4F OR MILD PAIN; Start 11/20/20 at 12:00 Al Hydroxide/Mg Hydroxide (Mylanta Plus Xs) 30 ml PRN DAILY PRN PO HEARTBURN / GAS; Start 11/20/20 at 12:00 Clonidine HCl (Catapres) 0.1 mg PRN Q6HRS PRN PO SBP>160 OR DBP>90; Start 11/20/20 at 12:00 Sodium Monofluorophosphate (Fleet Adult) 133 ml PRN DAILY PRN MS CONSTIPATION; Start 11/20/20 at 12:00 Docusate Sodium (Colace) 100 mg PRN BID PRN PO HARD STOOLS; Start 11/20/20 at 12:00 Albuterol/ Ipratropium (Duoneb) 3 ml Q4H NEB ; Start 11/20/20 at 12:00; Stop 11/20/20 at 15:48; Status DC Guaifenesin (Robitussin) 200 mg PRN Q4HRS PRN PO COUGH; Start 11/20/20 at 12:00 Lorazepam (Ativan) 0.5 mg PRN Q4HRS PRN PO ANXIETY / AGITATION; Start 11/20/20 at 12:00 Lorazepam (Ativan Inj) 2 mg PRN Q4HRS PRN IV ANXIETY / AGITATION; Start 11/20/20 at 12:00 Enoxaparin Sodium (Lovenox 40mg Syringe) 40 mg Q24H SQ ; Start 11/20/20 at 12:00 Famotidine (Pepcid Vial) 20 mg BID IVP Last administered on 11/21/20at 08:03; Start 11/20/20 at 21:00 Potassium Chloride (Klor-Con) 40 meq 1X ONCE PO Last administered on 11/20/20at 14:55; Start 11/20/20 at 13:30; Stop 11/20/20 at 13:31; Status DC Insulin Human Lispro (HumaLOG) 0-5 UNITS TIDWMEALS SQ ; Start 11/20/20 at 17:00 Dextrose (Dextrose 50%-Water Syringe) 12.5 gm PRN Q15MIN PRN IV SEE COMMENTS; Start 11/20/20 at 13:30 Nicotine (Nicoderm Cq 21mg) 1 patch 1X ONCE TD Last administered on 11/20/20at 15:59; Start 11/20/20 at 15:45; Stop 11/20/20 at 15:54; Status DC Nicotine (Nicoderm Cq 21mg) 1 patch DAILY TD Last administered on 11/21/20at 08:03; Start 11/21/20 at 09:00 Albuterol/ Ipratropium (Duoneb) 3 ml PRN Q4HRS PRN NEB shortness of breath ; Start 11/20/20 at 15:45 Sodium Chloride 1,000 ml @ 100 mls/hr Q10H IV ; Start 11/21/20 at 12:30 Allergies Allergies: Coded Allergies: No Known Drug Allergies (Unverified , 10/05/19) ROS Review of System UNABLE TO OBTAIN Physical Exam General: Alert, Cooperative, No acute distress HEENT: Atraumatic Lungs: Clear to auscultation Heart: Regular rate Abdomen: Normal bowel sounds, Soft, No tenderness Skin: No breakdown Neuro: Other (CONFUSED) Psych/Mental Status: Other (FLAT) MUSCULOSKELETAL: No joint tenderness, No deformity Vitals VITALS Vital Signs Date Time Temp Pulse Resp B/P (MAP) Pulse Ox O2 Delivery O2 Flow Rate FiO2 11/21/20 11:08 97.7 97 18 134/78 (96) 96 Room Air 97.7 Labs Labs Laboratory Tests Test 11/20/20 00:06 11/20/20 01:30 11/20/20 13:40 11/20/20 16:26 Urine Collection Type Unknown Urine Color Razia Urine Clarity Cloudy Urine pH 6.5 (<5.0-8.0) Urine Specific [place] 1.025 (1.000-1.030) Urine Protein 100 mg/dL (NEG-TRACE) Urine Glucose (UA) Negative mg/dL (NEG) Urine Ketones (Stick) Trace mg/dL (NEG) Urine Blood Negative (NEG) Urine Nitrite Negative (NEG) Urine Bilirubin Small (NEG) Urine Urobilinogen Dipstick 1.0 mg/dL (0.2 mg/dL) Urine Leukocyte Esterase Small (NEG) Urine RBC Occ /HPF (0-2) Urine WBC 1-4 /HPF (0-4) Urine Squamous Epithelial Cells Few /LPF Urine Bacteria 0 /HPF (0-FEW) Urine Hyaline Casts Moderate /HPF Urine Mucus Mod /LPF Urine Opiates Screen Neg (NEG) Urine Methadone Screen Neg (NEG) Urine Barbiturates Neg (NEG) Urine Phencyclidine Screen Neg (NEG) Urine Amphetamine/Methamphetamine Pos (NEG) Urine Benzodiazepines Screen Neg (NEG) Urine Cocaine Screen Neg (NEG) Urine Cannabinoids Screen Neg (NEG) Urine Ethyl Alcohol Pos (NEG) White Blood Count 10.3 x10^3/uL (4.0-11.0) Red Blood Count 4.10 x10^6/uL (3.50-5.40) Hemoglobin 13.4 g/dL (12.0-15.5) Hematocrit 37.3 % (36.0-47.0) Mean Corpuscular Volume 91 fL (79-100) Mean Corpuscular Hemoglobin 33 pg (25-35) Mean Corpuscular Hemoglobin Concent 36 g/dL (31-37) Red Cell Distribution Width 15.3 % (11.5-14.5) Platelet Count 149 x10^3/uL (140-400) Neutrophils (%) (Auto) 78 % (31-73) Lymphocytes (%) (Auto) 13 % (24-48) Monocytes (%) (Auto) 8 % (0-9) Eosinophils (%) (Auto) 0 % (0-3) Basophils (%) (Auto) 1 % (0-3) Neutrophils # (Auto) 8.0 x10^3/uL (1.8-7.7) Lymphocytes # (Auto) 1.3 x10^3/uL (1.0-4.8) Monocytes # (Auto) 0.8 x10^3/uL (0.0-1.1) Eosinophils # (Auto) 0.0 x10^3/uL (0.0-0.7) Basophils # (Auto) 0.1 x10^3/uL (0.0-0.2) Prothrombin Time 13.2 SEC (11.7-14.0) Prothromb Time International Ratio 1.0 (0.8-1.1) Activated Partial Thromboplast Time 27 SEC (24-38) Sodium Level 137 mmol/L (136-145) Potassium Level 3.3 mmol/L (3.5-5.1) Chloride Level 95 mmol/L (98-107) Carbon Dioxide Level 25 mmol/L (21-32) Anion Gap 17 (6-14) Blood Urea Nitrogen 20 mg/dL (7-20) Creatinine 0.8 mg/dL (0.6-1.0) Estimated GFR (Cockcroft-Gault) 74.7 Glucose Level 141 mg/dL (70-99) Calcium Level 9.3 mg/dL (8.5-10.1) Magnesium Level 1.5 mg/dL (1.8-2.4) Total Bilirubin 1.7 mg/dL (0.2-1.0) Direct Bilirubin 0.4 mg/dL (0.0-0.2) Aspartate Amino Transf (AST/SGOT) 95 U/L (15-37) Alanine Aminotransferase (ALT/SGPT) 49 U/L (14-59) Alkaline Phosphatase 105 U/L (46-116) Creatine Kinase 2474 U/L (26-192) Troponin I Quantitative < 0.017 ng/mL (0.000-0.055) Total Protein 8.2 g/dL (6.4-8.2) Albumin 4.4 g/dL (3.4-5.0) Lipase 86 U/L (73-393) Ethyl Alcohol Level 17 mg/dL (0-10) Ammonia 43 mcmol/L (11-34) Glucose (Fingerstick) 183 mg/dL (70-99) Test 11/20/20 20:15 11/21/20 03:05 11/21/20 07:36 11/21/20 11:32 Glucose (Fingerstick) 200 mg/dL (70-99) 119 mg/dL (70-99) 127 mg/dL (70-99) White Blood Count 4.9 x10^3/uL (4.0-11.0) Red Blood Count 3.18 x10^6/uL (3.50-5.40) Hemoglobin 10.0 g/dL (12.0-15.5) Hematocrit 29.9 % (36.0-47.0) Mean Corpuscular Volume 94 fL (79-100) Mean Corpuscular Hemoglobin 32 pg (25-35) Mean Corpuscular Hemoglobin Concent 34 g/dL (31-37) Red Cell Distribution Width 15.9 % (11.5-14.5) Platelet Count 105 x10^3/uL (140-400) Neutrophils (%) (Auto) 56 % (31-73) Lymphocytes (%) (Auto) 32 % (24-48) Monocytes (%) (Auto) 10 % (0-9) Eosinophils (%) (Auto) 2 % (0-3) Basophils (%) (Auto) 0 % (0-3) Neutrophils # (Auto) 2.7 x10^3/uL (1.8-7.7) Lymphocytes # (Auto) 1.5 x10^3/uL (1.0-4.8) Monocytes # (Auto) 0.5 x10^3/uL (0.0-1.1) Eosinophils # (Auto) 0.1 x10^3/uL (0.0-0.7) Basophils # (Auto) 0.0 x10^3/uL (0.0-0.2) Sodium Level 140 mmol/L (136-145) Potassium Level 3.3 mmol/L (3.5-5.1) Chloride Level 107 mmol/L (98-107) Carbon Dioxide Level 24 mmol/L (21-32) Anion Gap 9 (6-14) Blood Urea Nitrogen 11 mg/dL (7-20) Creatinine 0.6 mg/dL (0.6-1.0) Estimated GFR (Cockcroft-Gault) 104.2 BUN/Creatinine Ratio 18 (6-20) Glucose Level 109 mg/dL (70-99) Calcium Level 8.4 mg/dL (8.5-10.1) Total Bilirubin 0.7 mg/dL (0.2-1.0) Aspartate Amino Transf (AST/SGOT) 57 U/L (15-37) Alanine Aminotransferase (ALT/SGPT) 35 U/L (14-59) Alkaline Phosphatase 100 U/L (46-116) Creatine Kinase 931 U/L (26-192) Total Protein 5.9 g/dL (6.4-8.2) Albumin 2.9 g/dL (3.4-5.0) Albumin/Globulin Ratio 1.0 (1.0-1.7) Laboratory Tests Test 11/20/20 13:40 11/20/20 16:26 11/20/20 20:15 11/21/20 03:05 Ammonia 43 mcmol/L (11-34) Glucose (Fingerstick) 183 mg/dL (70-99) 200 mg/dL (70-99) White Blood Count 4.9 x10^3/uL (4.0-11.0) Red Blood Count 3.18 x10^6/uL (3.50-5.40) Hemoglobin 10.0 g/dL (12.0-15.5) Hematocrit 29.9 % (36.0-47.0) Mean Corpuscular Volume 94 fL (79-100) Mean Corpuscular Hemoglobin 32 pg (25-35) Mean Corpuscular Hemoglobin Concent 34 g/dL (31-37) Red Cell Distribution Width 15.9 % (11.5-14.5) Platelet Count 105 x10^3/uL (140-400) Neutrophils (%) (Auto) 56 % (31-73) Lymphocytes (%) (Auto) 32 % (24-48) Monocytes (%) (Auto) 10 % (0-9) Eosinophils (%) (Auto) 2 % (0-3) Basophils (%) (Auto) 0 % (0-3) Neutrophils # (Auto) 2.7 x10^3/uL (1.8-7.7) Lymphocytes # (Auto) 1.5 x10^3/uL (1.0-4.8) Monocytes # (Auto) 0.5 x10^3/uL (0.0-1.1) Eosinophils # (Auto) 0.1 x10^3/uL (0.0-0.7) Basophils # (Auto) 0.0 x10^3/uL (0.0-0.2) Sodium Level 140 mmol/L (136-145) Potassium Level 3.3 mmol/L (3.5-5.1) Chloride Level 107 mmol/L (98-107) Carbon Dioxide Level 24 mmol/L (21-32) Anion Gap 9 (6-14) Blood Urea Nitrogen 11 mg/dL (7-20) Creatinine 0.6 mg/dL (0.6-1.0) Estimated GFR (Cockcroft-Gault) 104.2 BUN/Creatinine Ratio 18 (6-20) Glucose Level 109 mg/dL (70-99) Calcium Level 8.4 mg/dL (8.5-10.1) Total Bilirubin 0.7 mg/dL (0.2-1.0) Aspartate Amino Transf (AST/SGOT) 57 U/L (15-37) Alanine Aminotransferase (ALT/SGPT) 35 U/L (14-59) Alkaline Phosphatase 100 U/L (46-116) Creatine Kinase 931 U/L (26-192) Total Protein 5.9 g/dL (6.4-8.2) Albumin 2.9 g/dL (3.4-5.0) Albumin/Globulin Ratio 1.0 (1.0-1.7) Test 11/21/20 07:36 11/21/20 11:32 Glucose (Fingerstick) 119 mg/dL (70-99) 127 mg/dL (70-99) Images Images CT HEAD AND C-SPINE WO dated 11/20/2020 12:30 AM. Comparison: None. Clinical Indication: Reason: intox/ams / Spl. Instructions: / History: , HEAD AND NECK PAIN Technical factors: Contiguous 5 mm axial images of the head were obtained from the skullbase to the vertex. No contrast was administered. In addition, 3 mm axial images of the cervical spine were acquired with thin cut coronal and sagittal reconstructions. One or more of the following individualized dose reduction techniques were utilized for this examination: 1. Automated exposure control 2. Adjustment of the mA and/or kV according to patient size 3. Use of iterative reconstruction technique Findings head: Ventricles and sulci are within normal limits for age. No evidence of ventricular shift or mass effect. Mild patchy low density in the deep/subcortical periventricular white matter, nonspecific here is no evidence of hemorrhage or extra-axial collection. Visualized paranasal sinuses and mastoid air cells are clear. No acute osseous abnormality. IMPRESSION HEAD: 1. No evidence of acute intracranial hemorrhage or mass. Findings cervical spine: Images were acquired from the skull base to T3. There is straightening of the normal cervical lordosis, otherwise sagittal alignment is anatomic. Vertebral body heights are maintained. No prevertebral soft tissue swelling. Posterior elements are intact. No fractures are identified. Mild multilevel uncoverteral hypertrophy with facet arthropathy. There is some erosive changes of the C3-C4 facet joint on the right. Mild multilevel uncovertebral spurring. No focal disc herniation. The bony canal and foramen appear adequate. Visualized soft tissue structures are unremarkable. Limited images of lung apices are clear. IMPRESSION CERVICAL SPINE: 1. No evidence of fracture or malalignment. 2. Mild multilevel spondylosis. There are some erosive changes at the C3-C4 facet joint on the right which could be acute or chronic. Electronically signed by: Kendall Meza MD (11/20/2020 1:07 AM) [facility] [facility] [place] dated 11/20/2020 12:30 AM. Comparison: None. Clinical Indication: Reason: intox/ams / Spl. Instructions: / History: , HEAD AND NECK PAIN Technical factors: Contiguous 5 mm axial images of the head were obtained from the skullbase to the vertex. No contrast was administered. In addition, 3 mm axial images of the cervical spine were acquired with thin cut coronal and sagittal reconstructions. One or more of the following individualized dose reduction techniques were utilized for this examination: 1. Automated exposure control 2. Adjustment of the mA and/or kV according to patient size 3. Use of iterative reconstruction technique Findings head: Ventricles and sulci are within normal limits for age. No evidence of ventricular shift or mass effect. Mild patchy low density in the deep/subcortical periventricular white matter, nonspecific here is no evidence of hemorrhage or extra-axial collection. Visualized paranasal sinuses and mastoid air cells are clear. No acute osseous abnormality. IMPRESSION HEAD: 1. No evidence of acute intracranial hemorrhage or mass. Findings cervical spine: Images were acquired from the skull base to T3. There is straightening of the normal cervical lordosis, otherwise sagittal alignment is anatomic. Vertebral body heights are maintained. No prevertebral soft tissue swelling. Posterior elements are intact. No fractures are identified. Mild multilevel uncoverteral hypertrophy with facet arthropathy. There is some erosive changes of the C3-C4 facet joint on the right. Mild multilevel uncovertebral spurring. No focal disc herniation. The bony canal and foramen appear adequate. Visualized soft tissue structures are unremarkable. Limited images of lung apices are clear. IMPRESSION CERVICAL SPINE: 1. No evidence of fracture or malalignment. 2. Mild multilevel spondylosis. There are some erosive changes at the C3-C4 facet joint on the right which could be acute or chronic. Electronically signed by: Kendall Meza MD (11/20/2020 1:07 AM) [facility]/Plan Assessment/Plan IMP PRERENAL AZOTEMIA DEHYDRATION RHABDOMYOLYSIS HYPOKALEMIA ETOH ABUSE METH ABUSE PLAN HYDRATION F/U CPK CHECK MAG, PO4 REPLACE K SUPPORT WILL FOLLOW YRIS FOFANA MD Nov 21, 2020 12:59
[2020-11-21 15:19] VITALS: BP 154/73
[2020-11-21 19:00] VITALS: BP 138/81
[2020-11-21] MEDS ORDERED: chlordiazePOXIDE HCL 25 MG CAPSULE PO PRN (21:00)
[2020-11-21] MEDS: chlordiazePOXIDE HCL 25 MG CAPSULE PO PRN (21:16)
[2020-11-21 22:56] VITALS: BP 130/74
[2020-11-22] MEDS: chlordiazePOXIDE HCL 25 MG CAPSULE PO PRN (00:37)
[2020-11-22] MEDS: POTASSIUM CL 20MEQ D5-0.9%NACL 1,000 ML IV SCH (00:37)
[2020-11-22 02:40] VITALS: BP 138/68
[2020-11-22 07:37] VITALS: BP 145/77
[2020-11-22] MEDS: NICOTINE 21MG PATCH. TD SCH (07:44)
[2020-11-22] MEDS: INSULIN LISPRO 300 UNITS/3 ML VIAL. SQ SCH (08:00)
[2020-11-22] MEDS: MULTIVIT INFUSN,ADULT 4,VIT K 10 ML, THIAMINE INJ 100 MG, FOLIC ACID INJ 1 MG in IV NOR... IV SCH (08:14)
[2020-11-22] MEDS: IV NORMAL SALINE 1000ML BAG 1,000 ML IV SCH (08:14)
[2020-11-22] MEDS: FAMOTIDINE 20 MG/2 ML VIAL IVP SCH (08:14)
[2020-11-22 08:48] LABS: MAGNESIUM 1.4 mg/dL (1.8-2.4)
[2020-11-22 09:00] LABS: CALCIUM 9.3 mg/dL (8.5-10.1); CREATININE 0.5 mg/dL (0.6-1.0); GFR 128.6; POTASSIUM 3.7 mmol/L (3.5-5.1)
--- NOTE | 2020-11-22 10:48 | PDOC ---
Renal-Progress Notes Subjective Notes Notes NO NEW COMPLAINTS History of Present Illness Hx of present illness STABLE Vitals Vitals Vital Signs Date Time Temp Pulse Resp B/P (MAP) Pulse Ox O2 Delivery O2 Flow Rate FiO2 11/22/20 08:00 Room Air 11/22/20 07:37 97.9 86 18 145/77 (99) 95 97.9 Weight Weight [ ] I.O. Intake and Output Intake and Output 11/22/20 07:00 Intake Total 3000 ml Output Total 500 ml Balance 2500 ml Intake Oral 2300 ml IV Total 700 ml Output Urine Total 500 ml # Voids 3 Labs Labs Laboratory Tests Test 11/21/20 11:32 11/21/20 16:30 11/21/20 18:51 11/22/20 06:30 Glucose (Fingerstick) 127 mg/dL (70-99) 103 mg/dL (70-99) 110 mg/dL (70-99) Sodium Level 144 mmol/L (136-145) Potassium Level 3.7 mmol/L (3.5-5.1) Chloride Level 107 mmol/L (98-107) Carbon Dioxide Level 25 mmol/L (21-32) Anion Gap 12 (6-14) Blood Urea Nitrogen 12 mg/dL (7-20) Creatinine 0.5 mg/dL (0.6-1.0) Estimated GFR (Cockcroft-Gault) 128.6 Glucose Level 140 mg/dL (70-99) Calcium Level 9.3 mg/dL (8.5-10.1) Phosphorus Level 3.0 mg/dL (2.6-4.7) Magnesium Level 1.4 mg/dL (1.8-2.4) Creatine Kinase 335 U/L (26-192) Test 11/22/20 06:56 Glucose (Fingerstick) 114 mg/dL (70-99) Micro Micro Microbiology 11/20/20 Urine Culture - Final, Complete Review of Systems Constitutional: yes: weakness, alert Eyes: Yes: no symptom reported Pulmonary: Yes no symptom reported Cardiovascular: Yes no symptom reported Gastrointestional: Yes: no symptom reported Genitourinary: Yes: no symptom reported Musculoskeletal: Yes: no symptom reported Skin: Yes no symptom reported Psychiatric/Neurological: Yes: no symptom reported Endocrine: Yes: no symptom reported Physical Exam General Appearance: no apparent distress Skin: warm Respiratory: decreased breath sounds Heart: S1S2 Abdomen: soft, bowel sounds present Genitourinary: bladder flat Extremities: pulses present Neurology: alert Assessment Assessment IMP PRERENAL AZOTEMIA-BETTER DEHYDRATION RHABDOMYOLYSIS-CPK DOWN TO 335 HYPOKALEMIA-CORRECTED LOW MAG ETOH ABUSE METH ABUSE PLAN HYDRATION F/U CPK REPLACE MAG SUPPORT YRIS FOFANA MD Nov 22, 2020 10:48
[2020-11-22] MEDS ORDERED: MAGNESIUM SULFATE 1GM 100 ML IV ONE (11:00)
--- NOTE | 2020-11-22 11:05 | NUR ---
Pt was very agitated from the start of the shift at 0700. Pt kept wondering out in hallways without a mask; staff would ask her to go back to her room and she did, but within 10 minutes pt was back out in hallway. Librium was given, seem to help pt for about an hour. Then pt started yelling and cussing about how she wanted to leave, and she was going to walk out the door. Pt had pulled out 6 IV's in [address] Walker was called, he stated to give her the options for AMA paperwork. Pt was told about the concerns, but pt signed AMA form. Security came up to floor and escorted pt out of the building.
--- NOTE | 2020-11-22 11:29 | NUR ---
SW following. Discussed with RN, pt left AMA. No further SW needs.
--- NOTE | 2020-11-22 11:37 | PDOC ---
[facility] PROGRESS NOTE Date of Service DOS: DATE: 11/22/20 TIME: 11:35 Chief Complaint Chief Complaint Acute altered mental status DUE TO POLYSUBSTANCE ABUSE Acute encephalopathy - metabolic with intoxication, withdrawal Hypokalemia - will replace, iv Transaminitis - ETOH fatty liver rhabdomyolysis cpk 2474 AT risk of renal injury HYPOKALEMIA - hypovolemic, D5 with 20meq KCL, 100cc/hr polysubstance abuse , METH, ETOH, SEVERE Acute alcohol intoxication - Chronic history of alcohol abuse - Amphetamine abuse - counseled. TOBACCO ABUSE DISORDER erosive changes at the C3-C4 facet joint on the right which could be acute or chronic on CT No focal disc herniation HOMELESS Plan: ADMIT CIGA protocol dvt prophylaxis follow CPK nephrology consult iv fluid hydration TREND RENAL FX DVT PROPHYLAXIS pat consult banana bag iv pepsis gi prophylaxis trend lytes NH4 LEVEL SS to assist Alcohol abstinence and social work evaluation for rehabilitation PAT consult History of Present Illness History of Present Illness 55 yo F presents to the ed VIA ems after patient presented herself to the fire station reporting methamphetamine and alcohol intoxication, states she has a history of a GI bleed. Patient was very disorganized on ED arrival, was intoxicated with un steady gait. Patient does not have medical decision-making capacity on arrival, is homeless, last used meth 4 days ago, drinks a pint of vodka daily. mg low at 1.5 in ER She admits to a long history of alcohol abuse and has been in and out of rehabilitation in the past. Recently she was sober but resumed alcohol ingestion. She also takes methamphetamine intermittently last use 4 days ago . 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 jaundice,needs Alcohol abstinence and social work evaluation for rehabilitation. 11/21/2020 Patient seen examined at bedside. Afebrile, no acute insert night. Patient is requesting to speak with a social and political studies professor. Will repeat CK this afternoon. Continue with IV fluids. I believe patient is homeless; plan to discharge when rhabdomyolysis has resolved. 11/22/2020 Discussion with RN the patient is severely agitated and pulling at her IV lines. Patient is alert and oriented x3. Discussed that patient has the option to leave AMA if she desires to, but she runs the risk of alcohol withdrawal seizures which could potentially and in serious injury if not . Patient conveyed understanding and left AMA. Vitals/I&O Vitals/I&O: Vital Signs Date Time Temp Pulse Resp B/P (MAP) Pulse Ox O2 Delivery O2 Flow Rate FiO2 11/22/20 08:00 Room Air 11/22/20 07:37 97.9 86 18 145/77 (99) 95 97.9 I & O 11/21/20 11/21/20 11/22/20 15:00 23:00 07:00 Intake Total 300 ml 600 ml 2100 ml Output Total 500 ml Balance 300 ml 600 ml 1600 ml Physical Exam General: Alert, Cooperative, mild distress Heart: Regular rate Abdomen: Normal bowel sounds, Soft, No tenderness Extremities: No cyanosis, No edema Skin: No breakdown Labs Labs: Laboratory Tests Test 11/21/20 16:30 11/21/20 18:51 11/22/20 06:30 11/22/20 06:56 Glucose (Fingerstick) 103 mg/dL (70-99) 110 mg/dL (70-99) 114 mg/dL (70-99) Sodium Level 144 mmol/L (136-145) Potassium Level 3.7 mmol/L (3.5-5.1) Chloride Level 107 mmol/L (98-107) Carbon Dioxide Level 25 mmol/L (21-32) Anion Gap 12 (6-14) Blood Urea Nitrogen 12 mg/dL (7-20) Creatinine 0.5 mg/dL (0.6-1.0) Estimated GFR (Cockcroft-Gault) 128.6 Glucose Level 140 mg/dL (70-99) Calcium Level 9.3 mg/dL (8.5-10.1) Phosphorus Level 3.0 mg/dL (2.6-4.7) Magnesium Level 1.4 mg/dL (1.8-2.4) Creatine Kinase 335 U/L (26-192) Assessment and Plan Assessmemt and Plan Problems Medical Problems: (1) Hypomagnesemia Status: Acute (2) Methamphetamine abuse Status: Acute (3) Rhabdomyolysis Status: Acute Comment Review of Relevant I have reviewed the following items alexandre (where applicable) has been applied. Medications: Current Medications Medications (Trade) Dose Ordered Sig/Holly Route PRN Reason Start Time Stop Time Status Last Admin Dose Admin Chlordiazepoxide (Librium) 50 mg PRN Q1HR PRN PO For CIWA 8-14 11/21/20 21:00 11/22/20 11:16 DC 11/22/20 00:37 Chlordiazepoxide (Librium) 100 mg PRN Q1HR PRN PO For CIWA 15 or greater 11/21/20 21:00 11/22/20 11:16 DC 11/22/20 07:44 Justifications for Admission Other Justification KAT CORRALES MD Nov 22, 2020 11:37
--- NOTE | 2020-11-22 11:41 | PDOC3 ---
Discharge Summary Visit Information Date of Admission: Nov 20, 2020 Date of Discharge: Nov 22, 2020 Final Diagnosis Problems Medical Problems: (1) Hypomagnesemia Status: Acute (2) Methamphetamine abuse Status: Acute (3) Rhabdomyolysis Status: Acute Brief Hospital Course Allergies Allergies Coded Allergies Type Severity Reaction Last Updated Verified No Known Drug Allergies 10/05/19 No Vital Signs Vital Signs Date Time Temp Pulse Resp B/P (MAP) Pulse Ox O2 Delivery O2 Flow Rate FiO2 11/22/20 08:00 Room Air 11/22/20 07:37 97.9 86 18 145/77 (99) 95 97.9 Lab Results Laboratory Tests Test 11/20/20 13:40 11/20/20 16:26 11/20/20 20:15 11/21/20 03:05 Ammonia 43 mcmol/L (11-34) Glucose (Fingerstick) 183 mg/dL (70-99) 200 mg/dL (70-99) White Blood Count 4.9 x10^3/uL (4.0-11.0) Red Blood Count 3.18 x10^6/uL (3.50-5.40) Hemoglobin 10.0 g/dL (12.0-15.5) Hematocrit 29.9 % (36.0-47.0) Mean Corpuscular Volume 94 fL (79-100) Mean Corpuscular Hemoglobin 32 pg (25-35) Mean Corpuscular Hemoglobin Concent 34 g/dL (31-37) Red Cell Distribution Width 15.9 % (11.5-14.5) Platelet Count 105 x10^3/uL (140-400) Neutrophils (%) (Auto) 56 % (31-73) Lymphocytes (%) (Auto) 32 % (24-48) Monocytes (%) (Auto) 10 % (0-9) Eosinophils (%) (Auto) 2 % (0-3) Basophils (%) (Auto) 0 % (0-3) Neutrophils # (Auto) 2.7 x10^3/uL (1.8-7.7) Lymphocytes # (Auto) 1.5 x10^3/uL (1.0-4.8) Monocytes # (Auto) 0.5 x10^3/uL (0.0-1.1) Eosinophils # (Auto) 0.1 x10^3/uL (0.0-0.7) Basophils # (Auto) 0.0 x10^3/uL (0.0-0.2) Sodium Level 140 mmol/L (136-145) Potassium Level 3.3 mmol/L (3.5-5.1) Chloride Level 107 mmol/L (98-107) Carbon Dioxide Level 24 mmol/L (21-32) Anion Gap 9 (6-14) Blood Urea Nitrogen 11 mg/dL (7-20) Creatinine 0.6 mg/dL (0.6-1.0) Estimated GFR (Cockcroft-Gault) 104.2 BUN/Creatinine Ratio 18 (6-20) Glucose Level 109 mg/dL (70-99) Calcium Level 8.4 mg/dL (8.5-10.1) Total Bilirubin 0.7 mg/dL (0.2-1.0) Aspartate Amino Transf (AST/SGOT) 57 U/L (15-37) Alanine Aminotransferase (ALT/SGPT) 35 U/L (14-59) Alkaline Phosphatase 100 U/L (46-116) Creatine Kinase 931 U/L (26-192) Total Protein 5.9 g/dL (6.4-8.2) Albumin 2.9 g/dL (3.4-5.0) Albumin/Globulin Ratio 1.0 (1.0-1.7) Test 11/21/20 07:36 11/21/20 11:32 11/21/20 16:30 11/21/20 18:51 Glucose (Fingerstick) 119 mg/dL (70-99) 127 mg/dL (70-99) 103 mg/dL (70-99) 110 mg/dL (70-99) Test 11/22/20 06:30 11/22/20 06:56 Sodium Level 144 mmol/L (136-145) Potassium Level 3.7 mmol/L (3.5-5.1) Chloride Level 107 mmol/L (98-107) Carbon Dioxide Level 25 mmol/L (21-32) Anion Gap 12 (6-14) Blood Urea Nitrogen 12 mg/dL (7-20) Creatinine 0.5 mg/dL (0.6-1.0) Estimated GFR (Cockcroft-Gault) 128.6 Glucose Level 140 mg/dL (70-99) Calcium Level 9.3 mg/dL (8.5-10.1) Phosphorus Level 3.0 mg/dL (2.6-4.7) Magnesium Level 1.4 mg/dL (1.8-2.4) Creatine Kinase 335 U/L (26-192) Glucose (Fingerstick) 114 mg/dL (70-99) Laboratory Tests Test 11/21/20 16:30 11/21/20 18:51 11/22/20 06:30 11/22/20 06:56 Glucose (Fingerstick) 103 mg/dL (70-99) 110 mg/dL (70-99) 114 mg/dL (70-99) Sodium Level 144 mmol/L (136-145) Potassium Level 3.7 mmol/L (3.5-5.1) Chloride Level 107 mmol/L (98-107) Carbon Dioxide Level 25 mmol/L (21-32) Anion Gap 12 (6-14) Blood Urea Nitrogen 12 mg/dL (7-20) Creatinine 0.5 mg/dL (0.6-1.0) Estimated GFR (Cockcroft-Gault) 128.6 Glucose Level 140 mg/dL (70-99) Calcium Level 9.3 mg/dL (8.5-10.1) Phosphorus Level 3.0 mg/dL (2.6-4.7) Magnesium Level 1.4 mg/dL (1.8-2.4) Creatine Kinase 335 U/L (26-192) Brief Hospital Course Ms. Kurtz is a 55 old female who presented with rhabdomyolysis and alcohol withdrawal. She was admitted and treated with IV hydration and alcohol withdrawal protocol treatment. Rhabdomyolysis resolved with fluids but also had some concern that patient was going through alcohol withdrawals. During the course of her treatment she became agitated about still being hospitalized. Discussed that patient has the option to leave AMA if she desires to, but she runs the risk of alcohol withdrawal seizures which could potentially and in serious injury if not . Patient ANO x3 and conveyed understanding. She left AMA. Labs and vital signs reviewed. Patient refused examination. Discharge Information Condition at Discharge: Stable Disposition/Orders: Other (Left AMA) Justicifation of Admission Dx: Justifications for Admission: Justification of Admission Dx: Yes (Rhabdomyolysis, EtOH withdrawal) KAT CORRALES MD Nov 22, 2020 11:41
== END 2020-11-22 09:47 | disposition left against medical advice (07) | DRG 917 ==
LOC: ER 22:32 → 6 SOUTH 11-20 04:49 → ED HOLD 11-20 05:08 → 6 SOUTH 11-20 14:55
PROVIDERS: ADMIT Internal Medicine; ATTEND Internal Medicine
DX: T50.991A Poisoning by other drugs, medicaments and biological substances, accidental (unintentional), initial encounter (principal); G93.41 Metabolic encephalopathy; M62.82 Rhabdomyolysis; F10.239 Alcohol dependence with withdrawal, unspecified; F15.10 Other stimulant abuse, uncomplicated; E87.6 Hypokalemia; K76.0 Fatty (change of) liver, not elsewhere classified; K74.60 Unspecified cirrhosis of liver; K70.9 Alcoholic liver disease, unspecified; E86.0 Dehydration; F17.210 Nicotine dependence, cigarettes, uncomplicated; E83.42 Hypomagnesemia; E11.9 Type 2 diabetes mellitus without complications; F10.229 Alcohol dependence with intoxication, unspecified; E86.1 Hypovolemia; Z59.0 Homelessness; Z82.49 Family history of ischemic heart disease and other diseases of the circulatory system; Z91.19 Patient's noncompliance with other medical treatment and regimen; Y92.89 Other specified places as the place of occurrence of the external cause; Z53.29 Procedure and treatment not carried out because of patient's decision for other reasons
CPT/HCPCS: 36415; 70450; 71045; 72125; 80048; 80053; 80076; 80307; 81001; 82140; 82550; 82962; 83690; 83735; 84100; 84484; 85025; 85610; 85730; 87086; 93005; 96365; 96366; 99285; G0480; J2060; J2405; J3411; J3475; J3480; J3490; J7030; G0378

== ENCOUNTER 2021-04-29 11:04 | Emergency (ER) | payer SELFPAY ==
[~2021-04-29] VITALS: Ht 160 cm; Wt 61.0 kg
--- NOTE | 2021-04-29 11:34 | PHYS DOC ---
Past Medical History Past Medical History: Anxiety, Depression, Schizophrenia, Unknown Additional Past Medical Histor: Pt is poor historian, poly substance abuse Past Surgical History: Other Additional Past Surgical Histo: UNKNOWN Smoking Status: Never Smoker Alcohol Use: Heavy Social History Narrative: denies General Adult EDM: Chief Complaint: ALCOHOL INTOXICATION HPI: HPI: Patient is a 55-year-old female presents emergency department brought in by EMS reporting patient was found sleeping outside a local bank, bystanders concerned and called 911. Continuous Churn Buttermaker states patient has been drinking alcohol and wishes to detox. Patient reports drinking 1/5 or more of vodka every day for over a year. Reports trying to detox several times, reports having seizures during detox. Reports her last detox was at [facility] 2 weeks ago where she was hospitalized for seizures. Patient states she does not take seizure medications, reports taking Seroquel, Ritalin, Celexa, reports a past medical history of alcoholism, PTSD, schizophrenia. Patient denies allergies to medications. Denies smoking cigarettes, denies illicit drug use, reports being postmenopausal has not had a menstrual cycle for several years. Patient denies pains, shortness of breath, chest pain, fever chills, denies homicidal suicidal ideation, denies visual disturbances, denies auditory or visual hallucinations, denies other physical complaints or concerns. Review of Systems: Review of Systems: 14 body systems of review of systems have been reviewed. See HPI for pertinent positives and negative responses, otherwise all other systems are negative, nonpertinent or noncontributory. Constitutional: Negative except as outlined in HPI above. Skin: Negative except as outlined in HPI above. Eyes: Negative except as outlined in HPI above. HENT: Negative except as outlined in HPI above. Respiratory: Negative except as outlined in HPI above. Cardiovascular: Negative except as outlined in HPI above. GI: Negative except as outlined in HPI above. : Negative except as outlined in HPI above. Musculoskeletal: Negative except as outlined in HPI above. Integument: Negative except as outlined in HPI above. Neurologic: Negative except as outlined in HPI above. Endocrine: Negative except as outlined in HPI above. Lymphatic: Negative except as outlined in HPI above. Psychiatric: Negative except as outlined in HPI above. Heart Score: C/O Chest Pain: No Risk Factors: Risk Factors: DM, Current or recent (<one month) smoker, HTN, HLP, family history of CAD, obesity. Risk Scores: Score 0 - 3: 2.5% MACE over next 6 weeks - Discharge Home Score 4 - 6: 20.3% MACE over next 6 weeks - Admit for Clinical Observation Score 7 - 10: 72.7% MACE over next 6 weeks - Early Invasive Strategies Allergies: Allergies: Allergies Coded Allergies Type Severity Reaction Last Updated Verified No Known Drug Allergies 10/05/19 No Physical Exam: PE: Constitutional: Well developed, well nourished, no acute distress, non-toxic appearance. 55-year-old female in no apparent distress. Strong smell of EtOH and urine, disheveled appearance, slurring speech during physical exam. HENT: Normocephalic, atraumatic. Eyes: Conjunctiva normal, no discharge. Neck: Normal range of motion, no stridor. Cardiovascular: No cyanosis appreciated, distal cap refill less than 2 seconds. Lungs & Thorax: Patient is in no respiratory distress, no audible adventitious lung sounds appreciated. Abdomen: Nontender, no abnormalities noted. Skin: Warm, dry, no erythema, no rash. Back: No tenderness, no deformities. Extremities: No tenderness, no cyanosis, no clubbing, ROM intact, no edema. Neurologic: Alert and oriented X 3, normal motor function, normal sensory function, no focal deficits noted. Psychologic: Affect normal, judgement normal, mood normal. EKG: EKG: [] Radiology/Procedures: Radiology/Procedures: [] Course & Med Decision Making: Course & Med Decision Making Pertinent Labs and Imaging studies reviewed. (See chart for details) 55-year-old female, vital signs reviewed, presents emergency department concerning acute alcohol intoxication. Unsure of exact details however per foreign diplomat statement patient was found sleeping outside of a local bank, was brought to the emergency department after they were called to scene, patient is asking for alcohol detox. Patient does report having seizures during detox in the past, will order alcohol detox work-up with Covid testing pending detox placement, will give banana bag, the patient is not tremoring at this time, is not diaphoretic, is not tachycardic. Will monitor, consult the PAT team for assessment PAT steamship agent at bedside to interview patient. Patient evaluated by qualified mental health professional PAT steamship agent Thu who reviewed any appropriate supporting documentation and previous available medical records and feels the patient meets criteria for admission to a local detox facility. Please refer to the qualified mental health professional's documentation describing reasoning, patient to be transferred to [facility] adult detox. Upon reevaluation of the patient, the patient continues to have no tremors, no diaphoresis, patient is clinically sober, appropriate for transfer to detox center. PAT steamship agent Thu secured patient admission [facility] adult detox, requested prescription for chlordiazepoxide treatment while in detox, patient will revert to detox center. Upon reevaluation of the patient, patient reports she is ready to be discharged to go to adult detox center, patient is clinically sober at this time. Patient will be discharged for fever transport to [facility] adult detox center. Dragon Disclaimer: DragGlySure Disclaimer: This electronic medical record was generated, in whole or in part, using a voice recognition dictation system. Departure Departure Impression: Primary Impression: Alcohol intoxication Qualified Codes: F10.920 - Alcohol use, unspecified with intoxication, uncomplicated Additional Impression: Alcoholism Disposition: HOME / SELF CARE / HOMELESS Condition: GOOD Referrals: NO PCP (PCP) Additional Instructions: You were seen today in the emergency department for acute alcoholism, you have expressed wanting to alcohol detox, you were interviewed and placed at a alcohol detox center, we are providing you transport to the detox center, I wish you the best going forward. Thank you for visiting our Emergency Department. It was a pleasure taking care of you today in the emergency department and we appreciate you trusting us with your care. If any additional problems come up don't hesitate to return to visit us. Please follow up with your primary care provider so they can plan additional care if needed and know about the problem that you had. If symptoms worsen come back to the Emergency Department. Any concerning symptoms that start such as chest pain, shortness of air, weakness or numbness on one side of the body, running high fevers or any other concerning symptoms return to the ER. EMERGENCY DEPARTMENT GENERAL DISCHARGE INSTRUCTIONS Thank you for coming to [facility] Emergency Department (ED) today and trusting us with you care. We trust that you had a positive experience in our Emergency Department. If you wish to speak to the department management, you may call the Director at [phone]. YOUR FOLLOW UP INSTRUCTIONS ARE FOLLOWS: 1. Do you have a private Doctor? If you do not have a private doctor, please ask for a resource list of physicians or clinics that may be able to assist you with follow up care. 2. The Emergency Physicain has interpreted your x-rays. The X-Ray specialist will also review them. If there is a change in the findings, you will be notified in 48 hours when at all possible. 3. A lab test or culture has been done, your results will be reviewed and you will be notified if you need a change in treatment. ADDITIONAL INSTRUCTIONS AND INFORMATION: 1. Your care today has been supervised by a physician who is specially trained in emergency care. Many problems require more than one evaluation for a complete diagnosis and treatment. We recommend that you schedule your follow up appointment as recommended to ensure complete treatment of you illness or injury. If you are unable to obtain follow up care and continue to have a problem, or if your condition worsens, we recommend that you return to the ED. 2. We are not able to safely determine your condition over the phone nor are we able to give sound medical advice over the phone. For these safety reasons, if you call for medical advice we will ask you to come to the ED for further evaluation. 3. If you have any questions regarding these discharge instructions please call the ED at [phone]. SAFETY INFORMATION: In the interest of safety, wellness, and injury prevention; we encourage you to wear your sealbelt, if you smoke; quite smoking, and we encourage family to use a protective helmet for bicycling and other sporting events that present an increased risk for head injury. IF YOUR SYMPTOMS WORSEN OR NEW SYMPTOMS DEVELOP, OR YOU HAVE CONCERNS ABOUT YOUR CONDITION; OR IF YOUR CONDITION WORSENS WHILE YOU ARE WAITING FOR YOUR FOLLOW UP APPOINTMENT; EITHER CONTACT YOUR PRIMARY CARE DOCTOR, THE PHYSICIAN WHOSE NAME AND NUMBER YOU WERE GIVEN, OR RETURN TO THE ED IMMEDIATELY. Scripts Chlordiazepoxide Hcl (CHLORDIAZEPOXIDE HCL) 25 Mg Capsule 25 MG PO QIDPRN PRN for alcohol withdrawl symdrome for 5 Days, #20 CAP 0 Refills Prov: CANDY SCOTT APRN 04/29/21 CANDY SCOTT APRN Apr 29, 2021 11:34
[2021-04-29] MEDS ORDERED: MULTIVIT INFUSN,ADULT 4,VIT K 10 ML, THIAMINE INJ 100 MG, FOLIC ACID INJ 1 MG in IV NOR... IV ONE (11:45)
[2021-04-29 12:01] LABS: BASO # 0.1 x10^3/uL (0.0-0.2); BASO % 2 % (0-3); EOS # 0.1 x10^3/uL (0.0-0.7); EOS % 1 % (0-3); HEMATOCRIT 29.3 % (36.0-47.0); HEMOGLOBIN 10.1 g/dL (12.0-15.5); LYMPH # 1.2 x10^3/uL (1.0-4.8); LYMPH % 27 % (24-48); MEAN CORPUSCULAR HEMOGLOBIN 33 pg (25-35); MEAN CORPUSCULAR HGB CONC 35 g/dL (31-37); MEAN CORPUSCULAR VOLUME 96 fL (79-100); MONO % 21 % (0-9); NEUT # 2.2 x10^3/uL (1.8-7.7); NEUT % 49 % (31-73); PLATELET COUNT 288 x10^3/uL (140-400); RED BLOOD COUNT 3.04 x10^6/uL (3.50-5.40); RED CELL DISTRIBUTION WIDTH 13.5 % (11.5-14.5); WHITE BLOOD COUNT 4.6 x10^3/uL (4.0-11.0)
[2021-04-29 12:10] LABS: PROTHROMBIN TIME PATIENT 12.4 SEC (11.7-14.0)
[2021-04-29 12:25] LABS: ALBUMIN 3.2 g/dL (3.4-5.0); ALBUMIN/GLOBULIN RATIO 0.8 (1.0-1.7); CALCIUM 9.1 mg/dL (8.5-10.1); CREATININE 0.5 mg/dL (0.6-1.0); GFR 128.6; TOTAL BILIRUBIN 0.5 mg/dL (0.2-1.0)
[2021-04-29 12:40] LABS: POTASSIUM 2.5 mmol/L (3.5-5.1)
[2021-04-29 13:10] LABS: % BANDS 1 % (0-9); % LYMPHS 22 % (24-48); % MONOS 18 % (0-10); % SEGS 59 % (35-66)
[2021-04-29 13:11] LABS: PLT ESTIMATE ADEQUATE (ADEQUATE)
[2021-04-29] MEDS ORDERED: POTASSIUM CHLORIDE 20 MEQ TABLET.ER. PO ONE (14:00)
[2021-04-29 15:13] LABS: BILIRUBIN,URINE NEGATIVE (NEG); CLARITY,URINE CLEAR; COLOR,URINE YELLOW; NITRITE,URINE NEGATIVE (NEG); PROTEIN,URINE NEGATIVE (NEG-TRACE)
[2021-04-29 15:19] LABS: BARBITURATES NEG (NEG); BENZODIAZEPINES NEG (NEG); CANNABINOIDS POS (NEG); COCAINE NEG (NEG); METHADONE NEG (NEG); OPIATES NEG (NEG); PHENCYCLIDINE NEG (NEG)
[2021-04-29 15:24] LABS: AMPHETAMINE/METHAMPHETAMINE NEG (NEG)
[2021-04-29 15:34] LABS: BACTERIA,URINE FEW /HPF (0-FEW); RBC,URINE 0 /HPF (0-2); WBC,URINE OCC /HPF (0-4)
[2021-04-29] MEDS ORDERED: chlordiazePOXIDE HCL 25 MG CAPSULE PO ONE (20:00)
[2021-04-29 21:00] VITALS: BP 128/85
[2021-04-29] MEDS ORDERED: CHLO25CA9 PO (21:17)
== END 2021-04-29 21:34 | disposition home or self-care (01) ==
LOC: ER 11:04
DX: F10.229 Alcohol dependence with intoxication, unspecified (principal); Y90.8 Blood alcohol level of 240 mg/100 ml or more; Z20.822 Contact with and (suspected) exposure to COVID-19; F20.9 Schizophrenia, unspecified
CPT/HCPCS: 36415; 80053; 80307; 81001; 82550; 83690; 85007; 85025; 85610; 87426; 96365; 99285; G0480; J3411; J3490; J7030; U0003; U0005

== ENCOUNTER 2021-05-06 22:14 | Emergency (ER) | payer SELFPAY ==
[~2021-05-06] VITALS: Ht 152.4 cm; Wt 63.0 kg
[~2021-05-06 22:14] MED LIST: CHLO25CA9 PO
--- NOTE | 2021-05-06 22:47 | PHYS DOC ---
Past Medical History Past Medical History: Alcoholism, Anxiety, Depression, Schizophrenia, Unknown Additional Past Medical Histor: Pt is poor historian, poly substance abuse, PTSD (NIRAJ ROMERO PLANT CHANGER) Past Surgical History: Other Additional Past Surgical Histo: UNKNOWN (NIRAJ ROMERO PLANT CHANGER) Smoking Status: Never Smoker Alcohol Use: Heavy (NIRAJ ROMERO PLANT CHANGER) General Adult EDM: Chief Complaint: ALCOHOL INTOXICATION HPI: HPI: Patient is a 55 year old female with history of alcoholism, anxiety, depressi on, schizophrenia, who presents to the ED today to be evaluated for alcohol intoxication. EMS report patient was found intoxicated laying in front of a restaurant. Patient states she had 1/5 of vodka today. She states she would like to go to detox. Of note patient was in detox a week ago. She states she was told not to drink again but she drank today. (NIRAJ ROMERO PLANT CHANGER) Review of Systems: Review of Systems: Constitutional: Denies fever or chills. [] Eyes: Denies change in visual acuity. [] HENT: Denies nasal congestion or sore throat. [] Respiratory: Denies cough or shortness of breath. [] Cardiovascular: Denies chest pain or edema. [] GI: Denies abdominal pain, nausea, vomiting, bloody stools or diarrhea. [] : Denies dysuria. [] Musculoskeletal: Denies back pain or joint pain. [] Integument: Denies rash. [] Neurologic: Denies headache, focal weakness or sensory changes. [] Psychiatric: Reports alcohol intoxication (NIRAJ ROMERO PLANT CHANGER) Heart Score: C/O Chest Pain: N/A Risk Factors: Risk Factors: DM, Current or recent (<one month) smoker, HTN, HLP, family history of CAD, obesity. Risk Scores: Score 0 - 3: 2.5% MACE over next 6 weeks - Discharge Home Score 4 - 6: 20.3% MACE over next 6 weeks - Admit for Clinical Observation Score 7 - 10: 72.7% MACE over next 6 weeks - Early Invasive Strategies (NIRAJ ROMERO PLANT CHANGER) Allergies: Allergies: Allergies Coded Allergies Type Severity Reaction Last Updated Verified No Known Drug Allergies 10/05/19 No (NIRAJ ROMERO PLANT CHANGER) Physical Exam: PE: Constitutional: Well developed, well nourished, no acute distress, non-toxic appearance. [] HENT: Normocephalic, atraumatic, bilateral external ears normal, oropharynx moist, no oral exudates, nose normal. [] Eyes: PERRLA, EOMI, conjunctiva normal, no discharge. [] Neck: Normal range of motion, no tenderness, supple, no stridor. [] Cardiovascular:Heart rate regular rhythm, no murmur [] Lungs & Thorax: Bilateral breath sounds clear to auscultation [] Abdomen: Bowel sounds normal, soft, no tenderness, no masses, no pulsatile masses. [] Skin: Warm, dry, no erythema, no rash. [] Back: No tenderness, no CVA tenderness. [] Extremities: No tenderness, no cyanosis, no clubbing, ROM intact, no edema. [] Neurologic: Alert and oriented X 3, normal motor function, normal sensory function, no focal deficits noted. Cranial nerves II through XII intact Psychologic: Flat affect, loud, asking for fluid (NIRAJ ROMERO APRN) EKG: EKG: [] (NIRAJ ROMERO APRN) Radiology/Procedures: Radiology/Procedures: [] (NIRAJ ROMERO APRN) Course & Med Decision Making: Course & Med Decision Making Pertinent Labs and Imaging studies reviewed. (See chart for details) This a 55-year-old female patient presented to the ED today to be evaluated for alcohol intoxication. Patient desires to go to [facility]. Off note she was in our ED a week ago and was sent to [facility] from the [facility] in the Ed and will work on placement. [address] Joseph (NIRAJ ROMERO APRN) Course & Med Decision Making This patient was initially seen by the nurse practitioner. Please see her note for further details. I assumed care to observe the patient over the rest of the lieutenant shift supervisor. She presented with alcohol intoxication. The patient rested throughout the remainder of the shift. After 0700 in the morning, the patient is awake, alert, she is ambulatory with a steady gait. She has no subjective physical complaints or pain. She wishes to go home. She will be discharged. No current indication for holding her against her well. She has no medical complaints, no indication for further invasive exams or labs or imaging at this time. She is provided with return precautions and home care instructions. (ASHLYN JOSEPH DO) Dragon Disclaimer: Dragon Disclaimer: This electronic medical record was generated, in whole or in part, using a voice recognition dictation system. (NIRAJ ROMERO APRN) Departure Departure Impression: Primary Impression: Alcohol intoxication Qualified Codes: F10.920 - Alcohol use, unspecified with intoxication, uncomplicated Disposition: HOME / SELF CARE / HOMELESS Condition: STABLE Referrals: NO PCP (PCP) Patient Instructions: Alcohol Intoxication, [id number] Additional Instructions: Return to the ER if you have any emergency medical condition, if you are acutely injured in any pain if you have any concerns for your safety or any other problems. Please follow-up with primary care physician. NIRAJ ROMERO APRN May 06, 2021 22:47 ASHLYN JOSEPH DO May 07, 2021 07:28
[2021-05-06] MEDS ORDERED: MULTIVIT INFUSN,ADULT 4,VIT K 10 ML, THIAMINE INJ 100 MG, FOLIC ACID INJ 1 MG in IV NOR... IV ONE (23:30)
[2021-05-07 00:01] LABS: BASO % 1 % (0-3); EOS # 0.1 x10^3/uL (0.0-0.7); EOS % 3 % (0-3); HEMATOCRIT 30.7 % (36.0-47.0); HEMOGLOBIN 10.4 g/dL (12.0-15.5); LYMPH # 1.8 x10^3/uL (1.0-4.8); LYMPH % 41 % (24-48); MEAN CORPUSCULAR HEMOGLOBIN 34 pg (25-35); MEAN CORPUSCULAR HGB CONC 34 g/dL (31-37); MEAN CORPUSCULAR VOLUME 100 fL (79-100); MONO # 0.6 x10^3/uL (0.0-1.1); MONO % 14 % (0-9); NEUT # 1.8 x10^3/uL (1.8-7.7); NEUT % 41 % (31-73); PLATELET COUNT 266 x10^3/uL (140-400); RED BLOOD COUNT 3.08 x10^6/uL (3.50-5.40); RED CELL DISTRIBUTION WIDTH 14.5 % (11.5-14.5); WHITE BLOOD COUNT 4.4 x10^3/uL (4.0-11.0)
[2021-05-07 00:07] LABS: CALCIUM 9.2 mg/dL (8.5-10.1); CREATININE 0.5 mg/dL (0.6-1.0); GFR 128.6
[2021-05-07 00:12] LABS: ALBUMIN 3.2 g/dL (3.4-5.0); ALBUMIN/GLOBULIN RATIO 0.8 (1.0-1.7); TOTAL BILIRUBIN 0.2 mg/dL (0.2-1.0)
[2021-05-07 00:13] LABS: ACETAMIN < 2 mcg/ml (10-30); ETHANOL 313 mg/dL (0-10); SALIC < 2.8 mg/dL (2.8-20.0)
[2021-05-07 07:33] VITALS: BP 147/81
[2021-05-07 07:36] LABS: BILIRUBIN,URINE NEGATIVE (NEG); CLARITY,URINE CLEAR; COLOR,URINE YELLOW; NITRITE,URINE NEGATIVE (NEG); PROTEIN,URINE NEGATIVE (NEG-TRACE); UROBILINOGEN,URINE 0.2 mg/dL (0.2 mg/dL)
[2021-05-07 07:49] LABS: BARBITURATES NEG (NEG); BENZODIAZEPINES POS (NEG); CANNABINOIDS NEG (NEG); COCAINE NEG (NEG); METHADONE NEG (NEG); OPIATES NEG (NEG); PHENCYCLIDINE NEG (NEG)
[2021-05-07 07:50] LABS: AMPHETAMINE/METHAMPHETAMINE NEG (NEG)
[2021-05-07 08:00] LABS: BACTERIA,URINE 0 /HPF (0-FEW); RBC,URINE 0 /HPF (0-2); WBC,URINE 0 /HPF (0-4)
== END 2021-05-07 07:38 | disposition home or self-care (01) ==
LOC: ER 22:14
DX: F10.229 Alcohol dependence with intoxication, unspecified (principal); F41.9 Anxiety disorder, unspecified; F32.9 Major depressive disorder, single episode, unspecified; F20.9 Schizophrenia, unspecified; F43.10 Post-traumatic stress disorder, unspecified; Y90.8 Blood alcohol level of 240 mg/100 ml or more
CPT/HCPCS: 36415; 80053; 80307; 80329; 81001; 83690; 85025; 96365; 99285; G0480; J3411; J3490; J7030

== ENCOUNTER → 2021-09-13 | Emergency (ER) | payer SELFPAY ==
[~2021-09-13] VITALS: Ht 177.8 cm; Wt 54.5 kg
--- NOTE | 2021-09-13 17:03 | PHYS DOC ---
Past Medical History Past Medical History: Alcoholism, Anxiety, Depression, Schizophrenia, Unknown Additional Past Medical Histor: Pt is poor historian, poly substance abuse, PTSD, hepatitis Past Surgical History: No Surgical History, Other Additional Past Surgical Histo: denies Smoking Status: Current Every Day Smoker Alcohol Use: Heavy General Adult EDM: Chief Complaint: LACERATION/AVULSION HPI: HPI: Patient is a 56 year old female who presents after a fall and lack to the back of her head. "I have no idea when I hit my head on, I am a drunk". "I drink vodka every day". Unknown loss of consciousness. Bleeding is controlled. Patient has history of schizophrenia, alcoholism, fibromyalgia. Review of Systems: Review of Systems: ROS At least 10 ROS systems have been reviewed and are negative except as documented in the HPI. General: Negative except as outlined in HPI above. Skin: Negative except as outlined in HPI above. HEENT: Negative except as outlined in HPI above. Neck: Negative except as outlined in HPI above. Respiratory: Negative except as outlined in HPI above.. Cardiovascular: Negative except as outlined in HPI above. Abdomen: Negative except as outlined in HPI above. : Negative except as outlined in HPI above. Back/MSK: Negative except as outlined in HPI above. Neuro: Negative except as outlined in HPI above. Psych: Negative except as outlined in HPI above. Heart Score: C/O Chest Pain: No Risk Factors: Risk Factors: DM, Current or recent (<one month) smoker, HTN, HLP, family history of CAD, obesity. Risk Scores: Score 0 - 3: 2.5% MACE over next 6 weeks - Discharge Home Score 4 - 6: 20.3% MACE over next 6 weeks - Admit for Clinical Observation Score 7 - 10: 72.7% MACE over next 6 weeks - Early Invasive Strategies Allergies: Allergies: Allergies Coded Allergies Type Severity Reaction Last Updated Verified No Known Drug Allergies 09/13/21 No Physical Exam: PE: Constitutional: Well developed, well nourished, no acute distress, non-toxic appearance. [] HENT: 1 cm laceration to posterior head Eyes: PERRLA, EOMI, conjunctiva normal, no discharge. [] Neck: Normal range of motion, no tenderness Cardiovascular:Heart rate regular rhythm, no murmur [] Lungs & Thorax: Bilateral breath sounds clear to auscultation [] Abdomen: Bowel sounds normal, soft, no tenderness, no masses, no pulsatile masses. [] Skin: Warm, dry, no erythema, no rash. [] Back: No tenderness, no CVA tenderness. [] Extremities: No tenderness, no cyanosis, no clubbing, ROM intact, no edema. [] Neurologic: Alert and oriented X 3, normal motor function, normal sensory function, no focal deficits noted. [] Psychologic: Abnormal judgment, aggravated Current Patient Data: Vital Signs: Vital Signs Date Time Temp Pulse Resp B/P (MAP) Pulse Ox O2 Delivery O2 Flow Rate FiO2 09/13/21 16:28 98.3 82 20 110/66 (81) 96 Room Air 98.3 EKG: EKG: [] Radiology/Procedures: Radiology/Procedures: []EXAM: Head and cervical spine CT without contrast. HISTORY: Fall. Pain. Laceration. TECHNIQUE: Computed tomographic images of the head and cervical spine were obtained without contrast. *One or more of the following individualized dose reduction techniques were utilized for this examination: 1. Automated exposure control. 2. Adjustment of the mA and/or kV according to patient size. 3. Use of iterative reconstruction technique. COMPARISON: 11/20/2020. FINDINGS: Head: There is no intracranial hemorrhage. There is no mass effect or midline shift. There is no hydrocephalus. The dos santos-white matter differentiation pattern is intact. The orbits are unremarkable. There is paranasal sinus mucosal thickening. There is a small amount of left mastoid fluid. There is no calvarial fracture. Cervical spine: There is mild multilevel endplate remodeling. There is minimal anterolisthesis of C7 on T1 and C4 on C5. There is multilevel facet arthropathy. There is no fracture or suspicious osseous lesion. The combination of degenerative changes results in mild left foraminal stenosis at C2-C3, severe right and mild left foraminal stenosis at C3-C4, moderate right and severe left foraminal stenosis at C4-C5, mild right foraminal stenosis at C5-C6, and mild right foraminal stenosis at C6-C7. The lung apices are unremarkable. There is a heterogeneous thyroid without discrete nodule. IMPRESSION: 1. No acute intracranial finding or evidence of acute cervical spine trauma. 2. Degenerative change involving the cervical spine, resulting in stenosis at the aforementioned levels. Electronically signed by: Pat Vu MD (09/13/2021 5:21 PM) [id number] Course & Med Decision Making: Course & Med Decision Making Pertinent Labs and Imaging studies reviewed. (See chart for details) [] 56-year-old female presents with laceration to posterior head. Patient was drinking today when she fell. Unknown how she fell. Patient reports that she falls frequently due to being an alcoholic. Bleeding is controlled. Patient reports last tetanus was 4 months ago. Wound was cleaned and 3 julius placed. Discussed return precautions. Discussed removal of julius. Dragon Disclaimer: Mike Disclaimer: This electronic medical record was generated, in whole or in part, using a voice recognition dictation system. Departure Departure Impression: Primary Impression: Alcoholism Additional Impression: Fall Qualified Codes: W19.XXXA - Unspecified fall, initial encounter Disposition: HOME / SELF CARE / HOMELESS Condition: STABLE Referrals: NO PCP (PCP) Patient Instructions: Staple Wound Closure, [id number] Additional Instructions: You are seen in the emergency room for laceration to the back of your head. Your wound was cleaned. 3 julius were placed. You mentioned that your tetanus was updated 3 months ago. Try and keep it clean to avoid infection. You need to have julius removed in 7 to 10 days. You can return to the ER to have them removed or go to your PCP. EMERGENCY DEPARTMENT GENERAL DISCHARGE INSTRUCTIONS Thank you for coming to [facility] Emergency Department (ED) today and trusting us with you care. We trust that you had a positive experience in our Emergency Department. If you wish to speak to the department management, you may call the Director at [phone]. YOUR FOLLOW UP INSTRUCTIONS ARE FOLLOWS: 1. Do you have a private Doctor? If you do not have a private doctor, please ask for a resource list of physicians or clinics that may be able to assist you with follow up care. 2. The Emergency Physicain has interpreted your x-rays. The X-Ray specialist will also review them. If there is a change in the findings, you will be notified in 48 hours when at all possible. 3. A lab test or culture has been done, your results will be reviewed and you will be notified if you need a change in treatment. ADDITIONAL INSTRUCTIONS AND INFORMATION: 1. Your care today has been supervised by a physician who is specially trained in emergency care. Many problems require more than one evaluation for a complete diagnosis and treatment. We recommend that you schedule your follow up appointment as recommended to ensure complete treatment of you illness or injury. If you are unable to obtain follow up care and continue to have a problem, or if your condition worsens, we recommend that you return to the ED. 2. We are not able to safely determine your condition over the phone nor are we able to give sound medical advice over the phone. For these safety reasons, if you call for medical advice we will ask you to come to the ED for further evaluation. 3. If you have any questions regarding these discharge instructions please call the ED at [phone]. SAFETY INFORMATION: In the interest of safety, wellness, and injury prevention; we encourage you to wear your sealbelt, if you smoke; quite smoking, and we encourage family to use a protective helmet for bicycling and other sporting events that present an increased risk for head injury. IF YOUR SYMPTOMS WORSEN OR NEW SYMPTOMS DEVELOP, OR YOU HAVE CONCERNS ABOUT YOUR CONDITION; OR IF YOUR CONDITION WORSENS WHILE YOU ARE WAITING FOR YOUR FOLLOW UP APPOINTMENT; EITHER CONTACT YOUR PRIMARY CARE DOCTOR, THE PHYSICIAN WHOSE NAME AND NUMBER YOU WERE GIVEN, OR RETURN TO THE ED IMMEDIATELY. MARCELINO TERRY APRN Sep 13, 2021 17:03
--- NOTE | 2021-09-13 17:23 | RAD ---
EXAM: Head and cervical spine CT without contrast. HISTORY: Fall. Pain. Laceration. TECHNIQUE: Computed tomographic images of the head and cervical spine were obtained without contrast. *One or more of the following individualized dose reduction techniques were utilized for this examina tion: 1. Automated exposure control. 2. Adjustment of the mA and/or kV according to patient size. 3. Use of iterative reconstruction technique. COMPARISON: 11/20/2020. FINDINGS: Head: There is no intracranial hemorrhage. There is no mass effect or midline shift. There is no hydr ocephalus. The dos santos-white matter differentiation pattern is intact. The orbits are unremarkable. Ther e is paranasal sinus mucosal thickening. There is a small amount of left mastoid fluid. There is no c alvarial fracture. Cervical spine: There is mild multilevel endplate remodeling. There is minimal anterolisthesis of C7 on T1 and C4 on C5. There is multilevel facet arthropathy. There is no fracture or suspicious osseous lesion. The combination of degenerative changes results in mild left foraminal stenosis at C2-C3, se teresa right and mild left foraminal stenosis at C3-C4, moderate right and severe left foraminal stenos is at C4-C5, mild right foraminal stenosis at C5-C6, and mild right foraminal stenosis at C6-C7. The lung apices are unremarkable. There is a heterogeneous thyroid without discrete nodule. IMPRESSION: 1. No acute intracranial finding or evidence of acute cervical spine trauma. 2. Degenerative change involving the cervical spine, resulting in stenosis at the aforementioned leve ls. Electronically signed by: Pat Vu MD (09/13/2021 5:21 PM) [id number]
[2021-09-13 19:00] VITALS: BP 127/67
== END | disposition home or self-care (01) ==
LOC: ER 16:26
DX: S01.91XA Laceration without foreign body of unspecified part of head, initial encounter (principal); F20.9 Schizophrenia, unspecified; F43.10 Post-traumatic stress disorder, unspecified; F17.200 Nicotine dependence, unspecified, uncomplicated; F10.20 Alcohol dependence, uncomplicated; Y90.9 Presence of alcohol in blood, level not specified; W18.39XA Other fall on same level, initial encounter; Y93.89 Activity, other specified; Y92.89 Other specified places as the place of occurrence of the external cause; Y99.8 Other external cause status
CPT/HCPCS: 12011; 70450; 72125; 99284-25